=== PATIENT | male | born 1940 | race Caucasian/White ===

== ENCOUNTER 2016-08-14 05:51 | Observation (INO) ==
[2016-08-14 08:41] LABS: Basophils # (Auto) 0 K/mcL (0.0-0.3); Basophils % (Auto) 0.5 % (0.0-2.0); Eosinophils # (Auto) 0.2 K/mcL (0.0-0.7); Eosinophils % (Auto) 2.3 % (0.0-7.0); Granulocytes % (Auto) 75.7 % (38.0-78.0); Lymphocytes % (Auto) 11.5 % (15.5-49.0); Mean Cell Volume 95.3 fL (80.0-100.0); Mean Corpuscular HGB Conc 32.2 g/dL (31.0-36.0); Mean Corpuscular Hemoglobin 30.7 pg (26.0-34.0); Monocytes # (Auto) 0.9 K/mcL (0.1-0.9); Platelet Count 310 K/mcL (140-440); RBC 3.68 M/mcL (4.50-5.90)
--- NOTE | 2016-08-14 08:43 | XRay Report ---
HISTORY: Reason for Exam:fall/pain FINDINGS: Bilateral total hip prosthesis are normally positioned. No pelvic or hip fracture are present. There are vascular clips in the right groin. Severe atherosclerotic disease is present throughout the pelvis and both legs. There has been no significant change since 07/02/15. IMPRESSION: No fracture Interpreted and Authenticated by: Thanh Downey 08/14/16
[2016-08-14 08:50] LABS: ALT/SGPT 16 U/l (0-40); Albumin/Globulin Ratio 0.8 (1.0-2.3); Alkaline Phosphatase 109 U/L (39-117); Blood Urea Nitrogen 55 mg/dl (8-23)
[2016-08-14] MEDS ORDERED: ACETAMINOPHEN 325 MG TABLET PO ONE (11:04)
[2016-08-14 11:31] LABS: Appearance,Urine CLOUDY; Bacteria,Urine MOD /hpf (0); Bilirubin,Urine NEG (NEG); Color,Urine YELLOW; Glucose,Urine (UA) NEGATIVE (NEG); Leukocyte Esterase,Urine 500 /uL (NEG); Mucus,Urine FEW /hpf (0); Nitrate,Urine NEG (NEG); Protein,Urine 100 mg/dL (NEG); Urine Amorphous Crystals FEW /hpf (0); Urine Blood NEG mg/dL (<0.03); Urine RBC 2 /hpf (0-1); Urine Squamous Epithelial Cell 0 /hpf (0-4); Urine WBC > 182 /hpf (0-4); Urobilinogen,Urine NEG (NEG)
[2016-08-14] MEDS ORDERED: MAGNESIUM SULFATE 2 GM/50 ML BAG IV PRN (14:28)
[2016-08-14] MEDS ORDERED: ONDANSETRON 4 MG/2 ML VIAL IV PRN (14:28)
[2016-08-14] MEDS ORDERED: 0.9 % SODIUM CHLORIDE 1,000 ML IV SCH (14:28)
[2016-08-14] MEDS: cefTRIAXone 2 GM in DEXTROSE 5% IN WATER 50 ML IV SCH (15:19)
[2016-08-14] MEDS ORDERED: INSULIN ASPART 1 UNIT SUB-Q PRN (15:27)
[2016-08-14] MEDS: 0.9 % SODIUM CHLORIDE 10 ML SYRINGE IV SCH ×2 (16:19→21:45)
[2016-08-14] MEDS: BUMETANIDE 1 MG TABLET PO SCH (16:23)
[2016-08-14] MEDS ORDERED: MIDODRINE 5 MG TABLET PO PRN (17:00)
--- NOTE | 2016-08-14 18:57 | History and Physical Report ---
DATE OF ADMISSION: 08/14/2016 REASON FOR ADMISSION: Weakness and fall. HISTORY OF CHIEF COMPLAINT: The patient is a 75-year-old with endstage renal disease who was recently started on hemodialysis and carries a fairly complicated past medical history including diabetes mellitus type 2, obstructive sleep apnea, neuropathy and diastolic heart failure. The patient was recently admitted at [facility] for uremic encephalopathy, volume overload, anasarca and bradycardia. He was subsequently managed in ICU on mechanical ventilation and recovered after a long with hospitalization. The patient was sent to [facility] in [place] and he was recently discharged. He started hemodialysis at [facility]. He had his first round of hemodialysis at [facility] last week; however, on Monday the patient became extremely weak, unable to function and unable to walk. He actually slid off of his wheelchair and landed on his left hip sustaining injuries. He also missed his hemodialysis on Monday. He subsequently came to [facility] ER today for evaluation where initial workup was unremarkable including hip x-ray except for UTI, but because of significant weakness and high risk decompensation Hospitalist Service was consulted by house wrecker to admit the patient. It should be noted that Hospitalist Service was not given a verbal sign out by ER physician. At the time of examination, the patient is accompanied with his , Abby. The patient is alert, oriented and was able to answer most of the questions. He denies recent fever, chills, diarrhea. He does endorse to minimal dysuria along with lower abdominal pain, but denies nausea, vomiting, headache, photophobia, or skin rash. He does have bilateral lower extremity abrasions with SCDs used at [facility] causing local skin abrasions, but denies decubitus ulcers or glandular swelling. REVIEW OF SYSTEMS: Ten-point review of system was performed and negative except the ones discussed above. PAST MEDICAL HISTORY: 1. History of obstructive sleep apnea, refusing CPAP use. 2. ESRD on hemodialysis. 3. Neuropathy. 4. Diabetes mellitus type 2. 5. Morbid obesity. 6. Hypertension 7. Diastolic heart failure. 8. Bradycardia. 9. Chronic pain. 10. BPH. 11. History of gout. 12. Hyperlipidemia. CURRENT MEDICATIONS: 1. Lactobacillus 1 cap at hs. 2. Allopurinol 100 mg. 3. Atorvastatin 40 mg. 4. Bumetanide 3 mg b.i.d. 5. Calcitriol 0.25 mg every other day. 6. Coreg 12.5 mg b.i.d. 7. Advair inhaled. 8. Gabapentin 300 mg daily. 9. Aspart sliding scale. 10. Glargine 34 mg. 11. Levothyroxine 150 mcg. 12. Metolazone 2.5 liters. 13. Midodrine 2.5 mg t.i.d. p.r.n. for blood pressures less than 100. 14. Ranitidine 150 mg. 15. Trazodone 50 mg. 16. Coumadin 7.5 mg at bedtime. ALLERGIES: 1. ADHESIVE. 2. MORPHINE. 3. OXYCODONE. 4. HYDROCODONE. SOCIAL HISTORY: The patient was recently transferred from [facility] and was currently at home living in [place] along with his , Abby, who can be reached at [phone]. He has been seeing primary care physician, Kulwinder Rodríguez, at [place] and recently transitioned care to Dr. Hubbard, but has not had an appointment is. He also sees kirstie Guerrero M.D., marine erector. Remote history of smoking. No history of alcoholism. CODE STATUS: FULL CODE. FAMILY HISTORY: Significant for sister with atrial fibrillation. PHYSICAL EXAMINATION: GENERAL: The patient is morbidly obese. BMI 40. Height 5 feet 8 inches. VITAL SIGNS: Blood pressure 113/73, respiration rate 30, temperature 97.2, pulse 95, irregular sats 96% on room air. HEENT: Pupils symmetric. Oral cavity is dry. No ear or nose discharge. Head is normocephalic and atraumatic. NECK: No lymphadenopathy. HEART: S1, S2, irregular rhythm. ESM grade 1. CHEST: Diminished breath sounds at bases, right anterior chest. Subclavian dialysis catheter. ABDOMEN: Soft and nontender. LOWER EXTREMITIES: Significant for skin excoriation with edema and stasis changes, but no cyanosis or clubbing. Joints have no suspicious lesion except for restricted range of motion at the left hip joint along with local tenderness. SKIN: Otherwise, no suspicious lesions. PSYCHIATRIC: Alert and cooperative. No anxiety. NEURO: Nonfocal, moving all four extremities. LABS AND IMAGING: White count 8.8, hemoglobin 11.3, platelets 310, sodium 133, potassium 3.5, creatinine 4.2, and BUN 55. LFTs unremarkable. BNP 4710. UA 182, WBCs with moderate bacteria. ASSESSMENT AND PLAN: The patient is a 75-year-old admitted with weakness, fall, and complicated UTI. 1. Complicated UTI. Start antibiotic coverage with Rocephin and deescalate based on culture sensitivities. 2. Weakness secondary likely to above and recent hospitalization and deconditioning. Start aggressive PT and OT and transition to possible rehab center. 3. Weakness and fall. Rule out bradycardia leading to presyncope. Admit as telemetry. 4. ESRD. Continue hemodialysis as per nephrology. 5. Prior medical issues including history of diabetes mellitus type 2, continue basal prandial insulin; neuropathy, continue Gabapentin; obstructive sleep apnea, the patient refuses CPAP reactive airway disease. Continue Fluticasone inhaled; history of diastolic heart failure, continue Coreg, statin; history of gout, continue Allopurinol. PLAN FOR TODAY: 1. Admit as inpatient in light of severe deconditioning, complicated UTI, ESRD on hemodialysis and likely presyncope. 2. Antibiotic coverage. 3. Preexisting medical condition management as above. 4. Aggressive PT, OT and case management to arrange SNF transfer. AA:subha Job ID: [id number] Doc ID: [id number] Jose Rodríguez PA-C
[2016-08-14] MEDS ORDERED: DOCUSATE SODIUM 100 MG CAPSULE PO SCH (21:00)
[2016-08-14] MEDS: WARFARIN 2.5 MG TABLET PO SCH (21:21)
[2016-08-14] MEDS: ATORVASTATIN 20 MG TABLET PO SCH (21:21)
[2016-08-14] MEDS: LACTOBACILLUS 1 CAPSULE PO SCH (21:22)
[2016-08-14] MEDS: SENNOSIDES/DOCUSATE SODIUM 1 TAB TABLET PO SCH ×2 (21:22→21:45)
[2016-08-14] MEDS: FAMOTIDINE 20 MG TABLET PO SCH (21:22)
[2016-08-14] MEDS: HEPARIN 5,000 UNIT/ML VIAL SQ SCH (21:22)
[2016-08-14] MEDS: FLUTICASONE PROPIONATE INH SCH (21:43)
[2016-08-15] MEDS: 0.9 % SODIUM CHLORIDE 10 ML SYRINGE IV SCH ×3 (05:34→21:49)
[2016-08-15 07:56] LABS: Mean Cell Volume 95.5 fL (80.0-100.0); Mean Corpuscular HGB Conc 31.9 g/dL (31.0-36.0); Mean Corpuscular Hemoglobin 30.5 pg (26.0-34.0); Platelet Count 328 K/mcL (140-440); RBC 3.57 M/mcL (4.50-5.90); Red Cell Distribution Width 18.7 % (11.5-14.5)
[2016-08-15] MEDS: LEVOTHYROXINE 150 MCG TABLET PO SCH (08:03)
[2016-08-15 08:40] LABS: ALT/SGPT 13 U/l (0-40); Albumin 2.9 gm/dL (3.2-5.2); Albumin/Globulin Ratio 1.1 (1.0-2.3); Alkaline Phosphatase 98 U/L (39-117); Bilirubin,Direct < 0.2 mg/dL (0.0-0.3); Blood Urea Nitrogen 60 mg/dl (8-23); Gamma Glutamyl Transpeptidase 60 U/L (8-61); Magnesium 2.4 mg/dL (1.6-2.5); Phosphorous 4.5 mg/dL (2.7-4.5)
[2016-08-15] MEDS: MULTIVIT,THER IRON,CA,FA & MIN 1 TABLET PO SCH (08:55)
[2016-08-15] MEDS: INSULIN GLARGINE, HUMAN 1 UNIT/0.01 ML SQ SCH (08:55)
[2016-08-15] MEDS: GABAPENTIN 300 MG CAPSULE PO SCH (08:55)
[2016-08-15] MEDS: ALLOPURINOL 100 MG TABLET PO SCH (08:55)
[2016-08-15] MEDS: HEPARIN 5,000 UNIT/ML VIAL SQ SCH ×2 (08:55→21:14)
[2016-08-15] MEDS: cefTRIAXone 2 GM in DEXTROSE 5% IN WATER 50 ML IV SCH (08:56)
[2016-08-15] MEDS: BUMETANIDE 1 MG TABLET PO SCH ×2 (08:59→16:00)
[2016-08-15 09:54] LABS: Anisocytosis 1+ (NONE SEEN); Band Neutrophils % 1 % (0-10); Eosinophils % (Manual) 5 % (0-7); Lymphocytes % 15 % (15-49); Monocytes % (Manual) 9 % (1-9); Platelet Estimate NORMAL (NORMAL); RBC Morphology ABNORM (NORMAL); Segmented Neutrophils % 70 % (38-78)
--- NOTE | 2016-08-15 10:15 | Internal Med Progress Note ---
Medical - PN: Subj Patient information: Note initiated : 08/15/16 at 10:13 am Service Date, if different from initiated Date: [] Patient: David Pineda 75 y/o M admitted on 08/14/16 for Left hip pain. Chief Complaint: [] Interval history: 08/14/16- 75-year-old patient with ESRD on hemodialysis Recently had a complicated hospitalization stay at [facility] on mechanical ventilation. He was subsequently discharged to rehabilitation at [facility] and was discharged last week home. He is now admitted with weakness fall complicated UTI likely CHF exacerbation from volume overload. admitted as inpatient telemetry. Ruling out presyncope. Patient has recent episodes of bradycardia however was a poor operative candidate for pacemaker placement. patient will be monitored while be treated with antibiotics, aggressive physical therapy, continued hemodialysis and possible transfer to SNF 1/2-patient doing well. No overnight events. Hemodialysis today. No fever chills nausea vomiting or concerns per nursing staff. No significant telemetry events. - Constitutional Vitals: Vital Signs Temp Pulse Resp BP Pulse Ox 98.3 F 108 H 16 135/71 95 08/15/16 08:00 08/15/16 08:00 08/15/16 08:00 08/15/16 08:00 08/15/16 08:00 Period Temp Pulse Resp BP Sys/Bentley Pulse Ox Last 24 Hr 97.2 F-98.7 F 90-126 16-30 117-135/60-79 93-98 Intake and Output 08/14/16 08/15/16 08/15/16 21:59 05:59 13:59 Intake Total 320 / 320 100 / 100 50 / 50 Output Total 900 / 900 750 / 750 Balance -580 / -580 -650 / -650 50 / 50 Weight 266 lb 1.6 oz Intake & Output: Intake & Output 08/14/16 08/15/16 08/15/16 21:59 05:59 13:59 Intake Total 320 / 320 100 / 100 50 / 50 Output Total 900 / 900 750 / 750 Balance -580 / -580 -650 / -650 50 / 50 Weight 266 lb 1.6 oz Intake: IV 50 / 50 50 / 50 Dextrose 5% in Water 50 50 / 50 50 / 50 ml @ 100 mls/hr IV Q24H JUAN with Rocephin 2 gm Rx #:[id number] Oral 270 / 270 100 / 100 Output: Urine Catheter Amount 900 / 900 750 / 750 Other: Meal Dinner Percent of Meal Consumed 100% General appearance: cooperative, no acute distress Exam: alert oriented nonlabored breathing Foleys draining concentrated urine telemetry A. fib Medical - PN: Obj Da - Labs CBC & Chem 7: 08/15/16 05:00 08/15/16 05:00 Labs: Abnormal Lab Results 08/15/16 08/15/16 08/15/16 05:00 05:00 05:00 RBC 3.57 L Hgb 10.9 L Hct 34.1 L RDW 18.7 H MPV 7.0 L RBC Morphology Abnorm A Anisocytosis 1+ A PT 28.8 H INR 2.6 H Chloride 95 L BUN 60 H Creatinine 3.9 H Calcium 8.5 L Total Protein 5.6 L Albumin 2.9 L 08/14/16 17:02 RBC Hgb Hct RDW MPV RBC Morphology Anisocytosis PT 28.6 H INR 2.6 H Chloride BUN Creatinine Calcium Total Protein Albumin Meds: Medications Acetaminophen (Tylenol) 650 mg PO Q4-6HP PRN PRN Reason: PAIN/FEVER > 101 Allopurinol (Zyloprim) 200 mg PO QDAY [facility] Last Admin: 08/15/16 08:55 Dose: 200 mg Atorvastatin Calcium (Lipitor) 30 mg PO HS [facility] Last Admin: 08/14/16 21:21 Dose: 30 mg Bumetanide (Bumex) 3 mg PO BIDD [facility] Last Admin: 08/15/16 08:59 Dose: 3 mg Calcitriol (Rocaltrol) 0.25 mcg PO Q48@0900 [facility] Diagnostic Test (Pha) (Accu-Chek) 1 each FS ACHS [facility] Last Admin: 08/15/16 08:03 Dose: 1 each Famotidine (Pepcid) 20 mg PO HS [facility] Last Admin: 08/14/16 21:22 Dose: 20 mg Gabapentin (Neurontin) 300 mg PO QDAY [facility] Last Admin: 08/15/16 08:55 Dose: 300 mg Heparin Sodium (Porcine) (Heparin) 5,000 unit SQ Q12 [facility] Last Admin: 08/15/16 08:55 Dose: 5,000 unit Magnesium Sulfate (Magnesium Sulfate) 2 gm in 50 mls @ 50 mls/hr IV UD PRN PRN Reason: MG = or < 1.7 Ceftriaxone Sodium 2 gm/ (Dextrose) 50 mls @ 100 mls/hr IV Q24H [facility] Last Infusion: 08/15/16 09:49 Dose: Infused Insulin Glargine (Lantus) 34 unit SQ DAILY [facility] Last Admin: 08/15/16 08:55 Dose: 34 unit Iron Carb/Multivit/Buyer Planner/Folic Acid (Multivitamin W/Minerals) 1 tab PO DAILY [facility] Last Admin: 08/15/16 08:55 Dose: 1 tab Lactobacillus Rhamnosus (Culturelle) 1 cap PO [facility] Last Admin: 08/14/16 21:22 Dose: 1 cap Levothyroxine Sodium (Synthroid) 150 mcg PO QAMAC [facility] Last Admin: 08/15/16 08:03 Dose: 150 mcg Metolazone (Zaroxolyn) 2.5 mg PO Q48@0730 [facility] Midodrine (Midodrine Hcl) 2.5 mg PO TIDP PRN PRN Reason: HYPOTENSION Non-Formulary Medication (Insulin Aspart [Novolog Flexpen]) 1 unit SUB-Q ONCE PRN PRN Reason: Blood Sugar - High Ondansetron HCl (Zofran) 4 mg IV Q4-6HP PRN PRN Reason: Nausea And Vomiting Fluticasone Propionate [Flovent Diskus] Inhaler 2 dose INH [facility] Last Admin: 08/14/16 21:43 Dose: Not Given Senna/Docusate Sodium (Senna Plus Tablet) 1 tab PO [facility] Last Admin: 08/14/16 21:45 Dose: Not Given Sodium Chloride (Saline Flush) 10 ml IV Q8 [facility] Last Admin: 08/15/16 05:34 Dose: 10 ml Warfarin Sodium (Coumadin) 3.75 mg PO [facility] Last Admin: 08/14/16 21:21 Dose: 3.75 mg Medical - PN: A/P - Time Spent With Patient Total time spent is greater than 50% in coordination of care (as documented) at patient's floor/unit and/or counseling patient: 25 - 35 minutes (1) Complicated UTI (urinary tract infection) Status: Acute Assessment and plan: * Complicated UTI-on antibiotic coverage. Await cultures * Presyncope-No telemetry events. History of bradycardia. Continue monitoring. Possible orthostatic hypotension * Falls with weakness-aggressive physical therapy and SNF transfer * ESRD on hemodialysis managed by nephrology * Hypothyroidism on thyroxine * dM type II on basal prandial insulin * history of orthostatic hypotension on midodrine * Atrial fibrillation currently rate controlled * anticoagulation for CVA prophylaxis on Coumadin. INR therapeutic at 2.6 * hyperlipidemia on statin * History of gout on allopurinol * neuropathy on gabapentin plan * Continue antibiotic coverage * Presyncope evaluation/treatment * Hemodialysis per nephrology * pre-existing medical condition management as above * Case management to arrange SNF transfer Current Visit: Yes Medical - PN: Qual - Stroke Symptom Onset Unknown: No - VTE Deep Vein Thrombosis/Pulmonary Embolism Present on Admission: No
[2016-08-15] MEDS: ACETAMINOPHEN 325 MG TABLET PO PRN ×2 (11:30→21:16)
[2016-08-15] MEDS: INSULIN LISPRO 1 UNIT/0.01 ML UNIT SQ SCH ×3 (11:35→21:19)
--- NOTE | 2016-08-15 14:38 | XRay Report ---
HISTORY: Reason for Exam: CHF FINDINGS: The heart size is within normal limits and has diminished in size since 07/11/16. There is respiration motion artifact along the diaphragms. There may be small bilateral subpulmonic pleural effusions. The pulmonary vessels do not appear engorged. There is no consolidating infiltrate. Dual lumen catheter is placed through the right internal jugular vein into the superior vena cava. IMPRESSION: Resolved cardiomegaly and no evidence of pulmonary vasculature congestion. Possible small bilateral pleural effusions Interpreted and Authenticated by: Thanh Downey 08/15/16
--- NOTE | 2016-08-15 15:19 | Nephrology Consult Note ---
History of Present Illness - Reason for Consult Patient information: Note initiated : 08/15/16 at 3:13 pm Service Date, if different from initiated Date: [] Patient: David Pineda 75 y/o M admitted on 08/14/16 for Left hip pain. Chief Complaint: [] Consult date: 08/14/16 end stage renal disease Requesting physician: Jose German - Chief Complaint weakness, fall - History of Present Illness Mr Pineda is a 75 y/o pleasant white male with PMH of HTN, DM type 2, Afib, ESRD on HD and multiple other medical co morbidities who is admitted with UTI, PRE SYNCOPE Patient has a history of recent hospitalisation for acute on chronic renal failure, hyperkalemia, pul edema for which he has had prolonged hospitalisation at [facility], he was initiated on dialysis there, he also needed pacemaker placement but had issues during surgery and this was not done, he was on ventilator there. Patient was discharged to SNF in [place] and was doing well and hence was discharged last week. He however has not been feeling well at home, he has had increasing weakness and inability to stand, walk. He had a fall at home after he was trying to transfer and he cannot remember what exactly happened, he was brought to ED and was found to have weakness/ deconditioning, on further evaluation he was found to have UTI and also CHF( with elevated pro BNP and small b/l pleural effusionon CXR) and hence he is been admitted for further management Patient did have some dysuria and cloudy urine since he came back to [facility] He did not have fever, chills no nausea, vomiting no SOB, CP no does c/o severe hip pain on and off, hip xray is negative Review of Systems All systems PM: reviewed and no additional remarkable complaints except as stated (in hpi) Past History Past medical history: DM type 2 HTN Afib CHF ANGELICA, ? obesity hypoventilation syndrome ESRD on HD morbid obesity hypothyroidism anemia of CKD renal osteodystrophy Past surgical history: s/p b/l hip replacement s/p TCC placement Past family history: not pertinent Past social history: lives with his in [place] currently no addictions Medications and Allergies Home Medications Medication Instructions Recorded Confirmed Type Lactobacillus acidophilus capsule 1 cap PO HS 03/11/15 08/14/16 History levothyroxine 150 mcg tablet 150 mcg PO QDAY tab 03/11/15 08/14/16 History cyanocobalamin (vit B-12) 1,000 1,000 mcg PO QDAY tab 03/16/15 08/14/16 History mcg tablet warfarin 5 mg tablet 3.75 mg PO HS tab 04/06/15 08/14/16 History fluticasone 50 mcg/actuation 2 inh INHALATION HS each 10/06/15 08/14/16 History blister powder for inhalation insulin aspart 100 unit/mL 1 unit SUB-Q ONCE PRN 12/17/15 08/14/16 History subcutaneous pen insulin glargine 100 unit/mL (3 34 unit SUB-Q QDAY ml 12/17/15 08/14/16 History mL) subcutaneous pen metolazone 2.5 mg tablet 2.5 mg PO QOD 04/25/16 08/14/16 History ranitidine 150 mg tablet 150 mg PO QHS 04/25/16 08/14/16 History coenzyme Q10 100 mg capsule 100 mg PO QDAY 05/25/16 08/14/16 History RX: Atorvastatin [Lipitor] 30 mg PO QDAY 08/14/16 08/14/16 History Allergies Allergy/AdvReac Type Severity Reaction Status Date / Time adhesive Allergy Unknown Unknown Verified 08/14/16 05:57 hydrocodone AdvReac Mild Dizziness Verified 08/14/16 05:57 morphine [MORPHINE] AdvReac Mild Nausea/Vomi Verified 08/14/16 05:57 ting Oxycodone AdvReac Mild Vomiting Verified 08/14/16 05:57 Exam - Vital Signs Vital signs: Temp Pulse Resp BP Pulse Ox 98.1 F 108 H 20 127/54 93 08/15/16 12:00 08/15/16 08:00 08/15/16 12:00 08/15/16 12:00 08/15/16 12:00 - General Appearance General appearance: appears started age, obese EENT: mucous membranes moist Neck: JVD Cardiology: no rub, no edema, irregular rhythm Gastrointestinal: no tenderness, no guarding Neurologic: alert and oriented x3 (myoclonic tremors +) Musculoskeletal: no cyanosis, no clubbing Psychiatric: mood/affect appropriate Results - Lab Results 08/15/16 05:00 08/15/16 05:00 Most recent lab results Calcium 8.5 mg/dl (8.6-10.4) L 08/15/16 05:00 Phosphorus 4.5 mg/dL (2.7-4.5) 08/15/16 05:00 Magnesium 2.4 mg/dL (1.6-2.5) 08/15/16 05:00 Assessment and Plan (1) ESRD (end stage renal disease) on dialysis Patient on dialysis now over a month no urgent need for the same good urinary output and stable serum electrolytes he will have HD done tomorrow will continue with diuretics as pro bnp still elevated and CXR still shows small b/l pleural effusion please dose meds to dialysis Complicated UTI: on antibiotics, await culture Pre syncope with fall at home deconditioning, will need SNF placement Anemia of CKD: Hb at goal for ESRD Discussed code status, patient and want him to be DNR, but they would like aggressive measures including dialysis overall poor prognosis appreciate hospitalist help in managing this patient Status: Acute
[2016-08-15] MEDS: LACTOBACILLUS 1 CAPSULE PO SCH (21:15)
[2016-08-15] MEDS: ATORVASTATIN 20 MG TABLET PO SCH (21:15)
[2016-08-15] MEDS: WARFARIN 2.5 MG TABLET PO SCH (21:15)
[2016-08-15] MEDS: SENNOSIDES/DOCUSATE SODIUM 1 TAB TABLET PO SCH (21:16)
[2016-08-15] MEDS: FAMOTIDINE 20 MG TABLET PO SCH (21:16)
[2016-08-15] MEDS: FLUTICASONE PROPIONATE INH SCH (21:49)
[2016-08-16] MEDS: ACETAMINOPHEN 325 MG TABLET PO PRN (04:07)
[2016-08-16] MEDS: 0.9 % SODIUM CHLORIDE 10 ML SYRINGE IV SCH ×3 (05:18→21:15)
[2016-08-16 05:33] LABS: Mean Cell Volume 95.7 fL (80.0-100.0); Mean Corpuscular HGB Conc 32.2 g/dL (31.0-36.0); Mean Corpuscular Hemoglobin 30.8 pg (26.0-34.0); Platelet Count 343 K/mcL (140-440); RBC 3.84 M/mcL (4.50-5.90); Red Cell Distribution Width 18.3 % (11.5-14.5)
[2016-08-16 06:16] LABS: Anisocytosis 1+ (NONE SEEN); Band Neutrophils % 1 % (0-10); Eosinophils % (Manual) 3 % (0-7); Lymphocytes % 20 % (15-49); Monocytes % (Manual) 11 % (1-9); Platelet Estimate NORMAL (NORMAL); RBC Morphology ABNORM (NORMAL); Rouleaux PRESENT (NONE SEEN); Segmented Neutrophils % 63 % (38-78)
[2016-08-16 06:34] LABS: ALT/SGPT 12 U/l (0-40); Albumin 2.8 gm/dL (3.2-5.2); Albumin/Globulin Ratio 0.8 (1.0-2.3); Alkaline Phosphatase 99 U/L (39-117); Bilirubin,Direct < 0.2 mg/dL (0.0-0.3); Blood Urea Nitrogen 65 mg/dl (8-23); Gamma Glutamyl Transpeptidase 63 U/L (8-61); Magnesium 2.1 mg/dL (1.6-2.5); Uric Acid 7.5 mg/dL (2.5-8.0)
[2016-08-16] MEDS ORDERED: METOLAZONE 2.5 MG TABLET PO SCH (07:30)
[2016-08-16] MEDS: BUMETANIDE 1 MG TABLET PO SCH ×2 (08:34→18:02)
[2016-08-16] MEDS: GABAPENTIN 300 MG CAPSULE PO SCH (08:34)
[2016-08-16] MEDS: ALLOPURINOL 100 MG TABLET PO SCH (08:35)
[2016-08-16] MEDS: MULTIVIT,THER IRON,CA,FA & MIN 1 TABLET PO SCH (08:35)
[2016-08-16] MEDS: INSULIN GLARGINE, HUMAN 1 UNIT/0.01 ML SQ SCH (08:36)
[2016-08-16] MEDS: HEPARIN 5,000 UNIT/ML VIAL SQ SCH ×2 (08:36→21:14)
[2016-08-16] MEDS: INSULIN LISPRO 1 UNIT/0.01 ML UNIT SQ SCH ×4 (08:37→21:35)
[2016-08-16] MEDS: LEVOTHYROXINE 150 MCG TABLET PO SCH (08:41)
[2016-08-16] MEDS: cefTRIAXone 2 GM in DEXTROSE 5% IN WATER 50 ML IV SCH (08:42)
[2016-08-16] MEDS ORDERED: CALCITRIOL 0.25 MCG CAPSULE PO SCH (09:00)
--- NOTE | 2016-08-16 13:34 | Internal Med Progress Note ---
Medical - PN: Subj Patient information: Note initiated : 08/16/16 at 1:34 pm Service Date, if different from initiated Date: [] Patient: David Pineda 75 y/o M admitted on 08/14/16 for Left Hip Pain/Weakness , Fall, Complicated UTI. Chief Complaint: [] Interval history: 08/14/16- 75-year-old patient with ESRD on hemodialysis Recently had a complicated hospitalization stay at [facility] on mechanical ventilation. He was subsequently discharged to rehabilitation at [facility] and was discharged last week home. He is now admitted with weakness fall complicated UTI likely CHF exacerbation from volume overload. admitted as inpatient telemetry. Ruling out presyncope. Patient has recent episodes of bradycardia however was a poor operative candidate for pacemaker placement. patient will be monitored while be treated with antibiotics, aggressive physical therapy, continued hemodialysis and possible transfer to SNF 1/2-patient doing well. No overnight events. Hemodialysis today. No fever chills nausea vomiting or concerns per nursing staff. No significant telemetry events. august 16, 2016: today, the patient says he still has some left hip discomfort andis adamant that that is the only reason that he cannot stand up and help with his transfers. However he also believes that he could transfer himself, without a Karuna lift, and according to the nurses, he clearly cannot. He denies feeling generally weak, and says his main problem is the hip pain. his urinary tract infection was reported as a pansensitive Klebsiella. He did undergo dialysis today. - Constitutional Vitals: Vital Signs Temp Pulse Resp BP Pulse Ox 97.5 F L 82 20 126/86 94 08/16/16 12:00 08/16/16 13:27 08/16/16 12:00 08/16/16 13:27 08/16/16 12:00 Period Temp Pulse Resp BP Sys/Bnetley Pulse Ox Last 24 Hr 97.3 F-98.7 F 70-100 16-20 103-133/61-88 94-96 Intake and Output 08/15/16 08/16/16 08/16/16 21:59 05:59 13:59 Intake Total 350 / 350 360 / 360 290 / 290 Output Total 950 / 950 775 / 775 1904 / 1904 Balance -600 / -600 -415 / -415 -1614 / -1614 Weight 264 lb Intake & Output: Intake & Output 08/15/16 08/16/16 08/16/16 21:59 05:59 13:59 Intake Total 350 / 350 360 / 360 290 / 290 Output Total 950 / 950 775 / 775 1903 Balance -600 / -600 -415 / -415 -1614 / -1614 Weight 264 lb Intake: IV 50 / 50 Dextrose 5% in Water 50 50 / 50 ml @ 100 mls/hr IV Q24H JUAN with Rocephin 2 gm Rx #:[id number] Oral 350 / 350 360 / 360 240 / 240 Output: Urine Catheter Amount 950 / 950 775 / 775 Hemodialysis UF 1903 Other: Meal Breakfast Percent of Meal Consumed 100% Feeding Ability Assist with Tray Set Up # Bowel Movements 0 Exam: on exam, he is an overweight, elderly white male in no acute distress. Cardiac exam shows irregularly irregular rhythm. lungsare decreased throughout with scattered crackles. Abdomen: Is soft and nontender. Extremities: Show trace peripheral edema. he is able to flex at the left hip without significant pain. Neurologic: The patient is too weak to really sit up without significant assistance.. Medical - PN: Obj Da - Labs CBC & Chem 7: 08/16/16 03:50 08/16/16 03:50 Labs: Abnormal Lab Results 08/16/16 08/16/16 08/16/16 03:50 03:50 03:50 RBC 3.84 L Hgb 11.8 L Hct 36.8 L RDW 18.3 H MPV 7.0 L Monocytes % (Manual) 11 H RBC Morphology Abnorm A Anisocytosis 1+ A Rouleaux Present A PT 25.9 H INR 2.3 H Chloride 91 L Anion Gap 17.0 H BUN 65 H Creatinine 4.0 H Calcium Phosphorus 5.0 H GGT 63 H Lactate Dehydrogenase 257 H Total Protein Albumin 2.8 L Albumin/Globulin Ratio 0.8 L 08/15/16 08/15/16 08/15/16 05:00 05:00 05:00 RBC 3.57 L Hgb 10.9 L Hct 34.1 L RDW 18.7 H MPV 7.0 L Monocytes % (Manual) RBC Morphology Abnorm A Anisocytosis 1+ A Rouleaux PT 28.8 H INR 2.6 H Chloride 95 L Anion Gap BUN 60 H Creatinine 3.9 H Calcium 8.5 L Phosphorus GGT Lactate Dehydrogenase Total Protein 5.6 L Albumin 2.9 L Albumin/Globulin Ratio 08/14/16 17:02 RBC Hgb Hct RDW MPV Monocytes % (Manual) RBC Morphology Anisocytosis Rouleaux PT 28.6 H INR 2.6 H Chloride Anion Gap BUN Creatinine Calcium Phosphorus GGT Lactate Dehydrogenase Total Protein Albumin Albumin/Globulin Ratio urinalysis and culture: Klebsiella pneumonia, pansensitive. Meds: Medications Acetaminophen (Tylenol) 650 mg PO Q4-6HP PRN PRN Reason: PAIN/FEVER > 101 Last Admin: 08/16/16 04:07 Dose: 650 mg Allopurinol (Zyloprim) 200 mg PO QDAY [facility] Last Admin: 08/16/16 08:35 Dose: 200 mg Atorvastatin Calcium (Lipitor) 30 mg PO HS [facility] Last Admin: 08/15/16 21:15 Dose: 30 mg Bumetanide (Bumex) 3 mg PO BIDD [facility] Last Admin: 08/16/16 08:34 Dose: 3 mg Calcitriol (Rocaltrol) 0.25 mcg PO Q48@0900 [facility] Last Admin: 08/16/16 08:35 Dose: 0.25 mcg Diagnostic Test (Pha) (Accu-Chek) 1 each FS [facility] Last Admin: 08/16/16 12:01 Dose: 1 each Famotidine (Pepcid) 20 mg PO HS [facility] Last Admin: 08/15/16 21:16 Dose: 20 mg Gabapentin (Neurontin) 300 mg PO QDAY [facility] Last Admin: 08/16/16 08:34 Dose: 300 mg Heparin Sodium (Porcine) (Heparin) 5,000 unit SQ Q12 [facility] Last Admin: 08/16/16 08:36 Dose: 5,000 unit Magnesium Sulfate (Magnesium Sulfate) 2 gm in 50 mls @ 50 mls/hr IV UD PRN PRN Reason: MG = or < 1.7 Ceftriaxone Sodium 2 gm/ (Dextrose) 50 mls @ 100 mls/hr IV Q24H [facility] Last Infusion: 08/16/16 09:38 Dose: Infused Insulin Glargine (Lantus) 34 unit SQ DAILY [facility] Last Admin: 08/16/16 08:36 Dose: 34 unit Insulin Human Lispro (Humalog) 0 unit SQ ACHS [facility] PRN Reason: Protocol Last Admin: 08/16/16 12:03 Dose: Not Given Iron Carb/Multivit/Hoop Coiling Machine Operator/Folic Acid (Multivitamin W/Minerals) 1 tab PO DAILY [facility] Last Admin: 08/16/16 08:35 Dose: 1 tab Lactobacillus Rhamnosus (Culturelle) 1 cap PO [facility] Last Admin: 08/15/16 21:15 Dose: 1 cap Levothyroxine Sodium (Synthroid) 150 mcg PO QAMAC [facility] Last Admin: 08/16/16 08:41 Dose: 150 mcg Metolazone (Zaroxolyn) 2.5 mg PO Q48@0730 [facility] Last Admin: 08/16/16 08:41 Dose: 2.5 mg Midodrine (Midodrine Hcl) 2.5 mg PO TIDP PRN PRN Reason: HYPOTENSION Ondansetron HCl (Zofran) 4 mg IV Q4-6HP PRN PRN Reason: Nausea And Vomiting Fluticasone Propionate [Flovent Diskus] Inhaler 2 dose INH [facility] Last Admin: 08/15/16 21:49 Dose: Not Given Senna/Docusate Sodium (Senna Plus Tablet) 1 tab PO [facility] Last Admin: 08/15/16 21:16 Dose: 1 tab Sodium Chloride (Saline Flush) 10 ml IV Q8 [facility] Last Admin: 08/16/16 05:18 Dose: 10 ml Warfarin Sodium (Coumadin) 3.75 mg PO [facility] Last Admin: 08/15/16 21:15 Dose: 3.75 mg Medical - PN: A/P - Time Spent With Patient Total time spent is greater than 50% in coordination of care (as documented) at patient's floor/unit and/or counseling patient: - Narrative A/P Narrative: #1. Failure to thrive -is a little unclear if this is related to his recent prolonged hospitalization , or to leaving the rehabilitation facility early, or to recurrent UTI. He does seem to be improving a bit today but still probably need significant physical therapy prior to returning home without high risk of fall. -Because of his left hip pain, I did contact Dr. Moreno of orthopedics. He looked at his x-rays,and feels it is highly unlikely that the patient has anything reversible causing his pain. The patient is certainly not a candidate for major orthopedic surgery. There is no evidence of acute hip infection. He suggested we continue with physical therapy, and pain medication if needed.. #2. Complicated UTI. -He is clinically improving on IV antibiotics. #3. End-stage renal disease. Status post dialysis, managed by Dr. Guerrero. #4. Hypothyroidism. Continue levothyroxine. #5. Diabetes type 2. Continue insulin. #6. History of orthostatic hypotension, managed with midodrine #7. History of atrial fibrillation, with controlled rate. He is on anticoagulation for stroke prophylaxis, and INR has been therapeutic. #8.History of hyperlipidemia, gout, neuropathy. Continue usual medications. #9. CODE STATUS: DNR. #10. DVT prophylaxis: Coumadin. approximately 35 minutes was spent today, reviewing the patient's chart and test results, interviewing and examining him, reviewing his case with orthopedics, and writing orders. Medical - PN: Qual - Stroke Symptom Onset Unknown: No - VTE Deep Vein Thrombosis/Pulmonary Embolism Present on Admission: No
[2016-08-16] MEDS ORDERED: ACETAMINOPHEN 325 MG TABLET PO PRN (16:32)
[2016-08-16] MEDS ORDERED: MIDODRINE 5 MG TABLET PO PRN (16:32)
[2016-08-16] MEDS ORDERED: ONDANSETRON 4 MG/2 ML VIAL IV PRN (16:32)
[2016-08-16] MEDS ORDERED: MAGNESIUM SULFATE 2 GM/50 ML BAG IV PRN (16:32)
--- NOTE | 2016-08-16 16:48 | Nephrology Progress Note ---
Subjective Patient information: Note initiated : 08/16/16 at 4:44 pm Service Date, if different from initiated Date: [] Patient: David Pineda 75 y/o M admitted on 08/14/16 for Left Hip Pain/Weakness , Fall, Complicated UTI. Chief Complaint: [] Principal diagnosis: UTI, Fall Interval history: Patient has had no overnight events feels better hip pain much improved still has issues with transfer and sit to stand denies SOB, CP, dizziness, no edema Objective - Vital Signs Vital signs: Vital Signs Temp Pulse Pulse Resp BP BP BP 08/16/16 16:01 97.5 F L 81 116/72 08/16/16 15:56 97.6 F 20 111/66 08/16/16 15:44 81 114/70 08/16/16 14:53 102 H 107/63 08/16/16 14:23 60 122/72 08/16/16 13:54 68 112/71 08/16/16 13:27 82 126/86 08/16/16 12:56 70 124/82 08/16/16 12:25 90 103/69 08/16/16 12:00 97.3 F L 94 H 20 120/64 120/64 08/16/16 08:00 98.3 F 100 H 16 131/71 08/16/16 04:00 98.7 F 16 131/71 08/15/16 23:44 98.4 F 18 110/61 08/15/16 19:53 98.6 F 100 H 18 111/65 Pulse Ox 08/16/16 16:01 08/16/16 15:56 96 08/16/16 15:44 08/16/16 14:53 08/16/16 14:23 08/16/16 13:54 08/16/16 13:27 08/16/16 12:56 08/16/16 12:25 08/16/16 12:00 94 08/16/16 08:00 08/16/16 04:00 95 08/15/16 23:44 94 08/15/16 19:53 95 Intake and Output 08/16/16 08/16/16 08/16/16 05:59 13:59 21:59 Intake Total 360 / 360 290 / 290 240 / 240 Output Total 775 / 775 3084 / 3084 8292 / 8292 Balance -415 / -415 -2794 / -2794 -8052 / -8052 Intake: IV 50 / 50 Dextrose 5% in Water 50 50 / 50 ml @ 100 mls/hr IV Q24H JUAN with Rocephin 2 gm Rx #:[id number] Oral 360 / 360 240 / 240 240 / 240 Output: Urine Catheter Amount 775 / 775 350 / 350 Hemodialysis UF 3084 / 3084 7942 / 7942 Other: Meal Breakfast Percent of Meal Consumed 100% Feeding Ability Assist with Tray Set Up Weight 264 lb Patient Weight 08/17/16 05:59 Weight 264 lb Intake & Output: Intake & Output 08/16/16 08/16/16 08/16/16 05:59 13:59 21:59 Intake Total 360 / 360 290 / 290 240 / 240 Output Total 775 / 775 3084 / 3084 8292 / 8292 Balance -415 / -415 -2794 / -2794 -8052 / -8052 Weight 264 lb Intake: IV 50 / 50 Dextrose 5% in Water 50 50 / 50 ml @ 100 mls/hr IV Q24H JUAN with Rocephin 2 gm Rx #:[id number] Oral 360 / 360 240 / 240 240 / 240 Output: Urine Catheter Amount 775 / 775 350 / 350 Hemodialysis UF 3084 / 3084 7942 / 7942 Other: Meal Breakfast Percent of Meal Consumed 100% Feeding Ability Assist with Tray Set Up - General Appearance General appearance: appears started age, obese EENT: mucous membranes moist Neck: no JVD Respiratory: clear Cardiology: no rub, no edema, irregular rhythm Gastrointestinal: no tenderness, no guarding Integumentary: warm and dry Neurologic: alert and oriented x3 Psychiatric: mood/affect appropriate - Lab 08/16/16 03:50 08/16/16 03:50 Most recent lab results Calcium 8.6 mg/dl (8.6-10.4) 08/16/16 03:50 Phosphorus 5.0 mg/dL (2.7-4.5) H 08/16/16 03:50 Magnesium 2.1 mg/dL (1.6-2.5) 08/16/16 03:50 Assessment and Plan (1) ESRD (end stage renal disease) on dialysis HD today for 4 hrs, using QB 400ml/min, QD 700ml/min, 3K/2.5ca dialysate, UF of 1-2L as tolerated next HD on dose meds to dialysis UTI: pansensitive klebsiella on antibiotics deconditioning awaiting SNF placement Appreciate hospitalist help in managing this patient Status: Acute
[2016-08-16] MEDS ORDERED: FAMOTIDINE 20 MG TABLET PO SCH (21:00)
[2016-08-16] MEDS ORDERED: WARFARIN 2.5 MG TABLET PO SCH (21:00)
[2016-08-16] MEDS ORDERED: LACTOBACILLUS 1 CAPSULE PO SCH (21:00)
[2016-08-16] MEDS ORDERED: ATORVASTATIN 20 MG TABLET PO SCH (21:00)
[2016-08-16] MEDS ORDERED: FLUTICASONE PROPIONATE INH SCH (21:00)
[2016-08-16] MEDS: SENNOSIDES/DOCUSATE SODIUM 1 TAB TABLET PO SCH (21:16)
[2016-08-17 05:43] LABS: ALT/SGPT 16 U/l (0-40); Albumin 2.9 gm/dL (3.2-5.2); Albumin/Globulin Ratio 0.7 (1.0-2.3); Alkaline Phosphatase 104 U/L (39-117); Bilirubin,Direct < 0.2 mg/dL (0.0-0.3); Blood Urea Nitrogen 38 mg/dl (8-23); Gamma Glutamyl Transpeptidase 69 U/L (8-61); Magnesium 1.9 mg/dL (1.6-2.5); Phosphorous 3.4 mg/dL (2.7-4.5); Uric Acid 4.1 mg/dL (2.5-8.0)
[2016-08-17 05:55] LABS: Mean Corpuscular HGB Conc 31.7 g/dL (31.0-36.0); Mean Corpuscular Hemoglobin 30.4 pg (26.0-34.0); Platelet Count 352 K/mcL (140-440); RBC 3.97 M/mcL (4.50-5.90); Red Cell Distribution Width 17.7 % (11.5-14.5)
[2016-08-17] MEDS: SENNOSIDES/DOCUSATE SODIUM 1 TAB TABLET PO SCH (06:15)
[2016-08-17] MEDS: 0.9 % SODIUM CHLORIDE 10 ML SYRINGE IV SCH (06:16)
[2016-08-17 07:02] LABS: Anisocytosis 1+ (NONE SEEN); Band Neutrophils % 3 % (0-10); Eosinophils % (Manual) 4 % (0-7); Lymphocytes % 15 % (15-49); Monocytes % (Manual) 14 % (1-9); Platelet Estimate NORMAL (NORMAL); RBC Morphology ABNORM (NORMAL); Segmented Neutrophils % 64 % (38-78)
[2016-08-17] MEDS: INSULIN LISPRO 1 UNIT/0.01 ML UNIT SQ SCH (07:22)
[2016-08-17] MEDS ORDERED: LEVOTHYROXINE 150 MCG TABLET PO SCH (07:30)
[2016-08-17] MEDS ORDERED: BUMETANIDE 1 MG TABLET PO SCH (08:00)
[2016-08-17] MEDS ORDERED: GABAPENTIN 300 MG CAPSULE PO SCH (09:00)
[2016-08-17] MEDS ORDERED: INSULIN GLARGINE, HUMAN 1 UNIT/0.01 ML SQ SCH (09:00)
[2016-08-17] MEDS ORDERED: cefTRIAXone 2 GM in DEXTROSE 5% IN WATER 50 ML IV SCH (09:00)
[2016-08-17] MEDS ORDERED: ALLOPURINOL 100 MG TABLET PO SCH (09:00)
[2016-08-17] MEDS ORDERED: MULTIVIT,THER IRON,CA,FA & MIN 1 TABLET PO SCH (09:00)
--- NOTE | 2016-08-17 09:26 | Discharge Summary ---
Medical - DS: Prov Patient information: Note initiated : 08/17/16 at 9:24 am Service Date, if different from initiated Date: [] Patient: David Pineda 75 y/o M admitted on 08/14/16 for Left Hip Pain/Weakness , Fall, Complicated UTI. Chief Complaint: [] Date of admission: 08/14/16 12:42 Discharge date: 08/17/16 Primary care physician: [Dr. Ani Hubbard phone [phone]] Admitting clinician: Jose German Attending physician on discharge: Andressa Azevedo Medical - DS: Meds - Discharge Medications Prescriptions: cefTRIAXone [Rocephin] 2 gm IV DAILY 3 Days Active and Home Medications: Home Medications Atorvastatin [Lipitor] 30 mg PO QDAY 08/14/16 [History Confirmed 08/14/16 Last Taken 08/13/16 20:00] Active Medications Acetaminophen (Tylenol) 650 mg PO Q4-6HP PRN PRN Reason: PAIN/FEVER > 101 Allopurinol (Zyloprim) 200 mg PO QDAY [facility] Atorvastatin Calcium (Lipitor) 30 mg PO HS [facility] Last Admin: 08/16/16 21:11 Dose: 30 mg Bumetanide (Bumex) 3 mg PO BIDD [facility] Calcitriol (Rocaltrol) 0.25 mcg PO Q48@0900 [facility] Diagnostic Test (Pha) (Accu-Chek) 1 each FS ACHS [facility] Last Admin: 08/17/16 07:22 Dose: 1 each Famotidine (Pepcid) 20 mg PO HS [facility] Last Admin: 08/16/16 21:12 Dose: 20 mg Gabapentin (Neurontin) 300 mg PO QDAY [facility] Heparin Sodium (Porcine) (Heparin) 5,000 unit SQ Q12 [facility] Last Admin: 08/16/16 21:14 Dose: 5,000 unit Magnesium Sulfate (Magnesium Sulfate) 2 gm in 50 mls @ 25 mls/hr IV UD PRN PRN Reason: MG = or < 1.7 Ceftriaxone Sodium 2 gm/ (Dextrose) 50 mls @ 100 mls/hr IV DAILY [facility] Insulin Glargine (Lantus) 34 unit SQ DAILY [facility] Insulin Human Lispro (Humalog) 0 unit SQ ACHS [facility] PRN Reason: Protocol Last Admin: 08/17/16 07:22 Dose: Not Given Iron Carb/Multivit/Oktibbeha/Folic Acid (Multivitamin W/Minerals) 1 tab PO DAILY [facility] Lactobacillus Rhamnosus (Culturelle) 1 cap PO [facility] Last Admin: 08/16/16 21:13 Dose: 1 cap Levothyroxine Sodium (Synthroid) 150 mcg PO QAMAC [facility] Last Admin: 08/17/16 07:22 Dose: 150 mcg Metolazone (Zaroxolyn) 2.5 mg PO Q48@0730 [facility] Midodrine (Midodrine Hcl) 2.5 mg PO TIDP PRN PRN Reason: HYPOTENSION Ondansetron HCl (Zofran) 4 mg IV Q4-6HP PRN PRN Reason: Nausea And Vomiting Fluticasone Propionate [Flovent Diskus] Inhaler 2 dose INH [facility] Last Admin: 08/16/16 21:16 Dose: Not Given Senna/Docusate Sodium (Senna Plus Tablet) 1 tab PO [facility] Last Admin: 08/17/16 06:15 Dose: 1 tab Sodium Chloride (Saline Flush) 10 ml IV Q8 [facility] Last Admin: 08/17/16 06:16 Dose: 10 ml Warfarin Sodium (Coumadin) 3.75 mg PO [facility] Last Admin: 08/16/16 21:13 Dose: 3.75 mg Medical - DS: Hosp Hospital course: Mr. Pineda is a 75 year old male 08/14/16- 75-year-old patient with ESRD on hemodialysis Recently had a complicated hospitalization stay at [facility] on mechanical ventilation. He was subsequently discharged to rehabilitation at [facility] and was discharged last week home. He is now admitted with weakness, fall ,complicated UTI, likely CHF exacerbation from volume overload. admitted as inpatient telemetry. Ruling out presyncope. Patient has recent episodes of bradycardia however was a poor operative candidate for pacemaker placement. patient will be monitored while be treated with antibiotics, aggressive physical therapy, continued hemodialysis and possible transfer to SNF 1/2-patient doing well. No overnight events. Hemodialysis today. No fever chills nausea vomiting or concerns per nursing staff. No significant telemetry events. august 16, 2016: today, the patient says he still has some left hip discomfort and is adamant that that is the only reason that he cannot stand up and help with his transfers. However he also believes that he could transfer himself, without a Karuna lift, and according to the nurses, he clearly cannot. He denies feeling generally weak, and says his main problem is the hip pain. his urinary tract infection was reported as a pansensitive Klebsiella. August 17, 2016: [place], and then was sent to rehabilitation. Apparently he left rehabilitation earlier, before the physical therapist felt that he was ready, due to his insurance co- pay. After arriving home, he experienced decline, and was subsequently diagnosed with a urinary tract infection. Unfortunately he was so weak that his could not manage him at home, so he was admitted here for further observation and investigation. he has remained stable from a vital sign standpoint here. He did undergo dialysis yesterday, and appears to have tolerated that well. he was complaining of very significant left hip pain, and did have x-rays. His x-rays were reviewed with Dr. Moreno from orthopedics, who did not see anything obvious on the x-rays, and felt the patient should continue to pursue physical therapy. Today, the patient says the hip pain is nearly gone. He has been getting out of bed with the useof a Karuna yesterday, and today was using a sit to stand device. [facility] agreed [facility] the patientfor ongoing rehabilitation and strengthening prior to returning home. #1. Failure to thrive -is a little unclear if this is related to his recent prolonged hospitalization , or to leaving the rehabilitation facility early, or to recurrent UTI. He does seem to be improving but still probably need significant physical therapy prior to returning home without high risk of fall. -Because of his left hip pain, I did contact Dr. Moreno of orthopedics. He looked at his x-rays,and feels it is highly unlikely that the patient has anything reversible causing his pain. The patient is certainly not a candidate for major orthopedic surgery. There is no evidence of acute hip infection. He suggested we continue with physical therapy, and pain medication if needed.. #2. Complicated UTI. -He is clinically improving on IV antibiotics. he has a pansensitive Klebsiella infection but due to significant compromise and frailty, I would keep him on the IV Rocephin for a total of 7 days. -Brown catheter was removed this morning, and we will check a postvoid residual prior to discharge. #3. End-stage renal disease. Status post dialysis, managed by Dr. Guerrero. he will be due again for dialysis tomorrow. #4. Hypothyroidism. Continue levothyroxine. #5. Diabetes type 2. Continue Lantus plus sliding scale. with his renal insufficiency, we may need to switch his Lantus over to Levemir. #6. History of orthostatic hypotension, managed with midodrine #7. History of atrial fibrillation, with controlled rate. He is on anticoagulation for stroke prophylaxis, and INR has been therapeutic. #8.History of hyperlipidemia, gout, neuropathy. Continue usual medications. #9. CODE STATUS: DNR. #10. DVT prophylaxis: Coumadin. - Time Spent with Patient Total time spent providing and/or coordinating discharge services: Greater than 30 minutes Medical - DS: Exam - Constitutional Vitals: Vital Signs Temp Pulse Pulse Resp BP BP BP 08/17/16 07:47 98.7 F 84 24 112/70 08/17/16 07:39 08/17/16 04:00 97.7 F 111 H 24 120/78 08/16/16 23:45 98.4 F 96 H 24 128/72 08/16/16 20:00 97.7 F 99 H 24 140/84 08/16/16 16:01 97.5 F L 81 116/72 08/16/16 15:56 97.6 F 20 111/66 08/16/16 15:44 81 114/70 08/16/16 14:53 102 H 107/63 08/16/16 14:23 60 122/72 08/16/16 13:54 68 112/71 08/16/16 13:27 82 126/86 08/16/16 12:56 70 124/82 08/16/16 12:25 90 103/69 08/16/16 12:00 97.3 F L 94 H 20 120/64 120/64 Pulse Ox 08/17/16 07:47 95 08/17/16 07:39 97 08/17/16 04:00 93 08/16/16 23:45 95 08/16/16 20:00 91 08/16/16 16:01 08/16/16 15:56 96 08/16/16 15:44 08/16/16 14:53 08/16/16 14:23 08/16/16 13:54 08/16/16 13:27 08/16/16 12:56 08/16/16 12:25 08/16/16 12:00 94 Intake and Output 08/16/16 08/17/16 08/17/16 21:59 05:59 13:59 Intake Total 240 / 240 120 / 120 240 / 240 Output Total 8292 / 8292 325 / 325 100 / 100 Balance -8052 / -8052 -205 / -205 140 / 140 Intake: Oral 240 / 240 120 / 120 240 / 240 Output: Urine Catheter Amount 350 / 350 325 / 325 100 / 100 Hemodialysis UF 7942 / 7942 Other: Meal Breakfast Percent of Meal Consumed 90 Feeding Ability Independent Weight 264 lb Additional comments: on exam today,he patient is awake and alert. He is sitting up in a chair and smiling. He is looking forward to getting out of the hospital.Cardiac exam shows irregularly irregular rhythm. lungs are decreased throughout with scattered crackles. Abdomen: Is soft and nontender. Extremities: Show trace peripheral edema. neurologic exam is grossly nonfocal. Medical - DS: Data Labs on day of discharge: Labs from last 24 hours 08/17/16 08/17/16 08/17/16 03:20 03:15 03:15 WBC 10.3 RBC 3.97 L Hgb 12.1 L Hct 38.1 L MCV 96.0 MCH 30.4 MCHC 31.7 RDW 17.7 H Plt Count 352 MPV 6.8 L Total Counted 200 Seg Neutrophils % 64 Band Neutrophils % 3 Lymphocytes % 15 Monocytes % (Manual) 14 H Eosinophils % (Manual) 4 WBC Morphology Abnorm A Vacuolated Monocytes 1+ A Platelet Estimate Normal RBC Morphology Abnorm A Anisocytosis 1+ A RBC Fragments Occ A PT 24.0 H INR 2.1 H Sodium 132 L Potassium 3.5 Chloride 96 Carbon Dioxide 22 Anion Gap 14.0 BUN 38 H Creatinine 2.6 H GFR Calculation 23 Glucose 128 H Uric Acid 4.1 Calcium 8.8 Phosphorus 3.4 Magnesium 1.9 Total Bilirubin 0.2 Direct Bilirubin < 0.2 GGT 69 H AST 23 ALT 16 Alkaline Phosphatase 104 Lactate Dehydrogenase 268 H Total Protein 6.9 Albumin 2.9 L Globulin 4.0 H Albumin/Globulin Ratio 0.7 L Triglycerides 142 urinalysis and culture: Klebsiella pneumonia, pansensitive. eft hip x-ray did show bilateral total hip prostheses with normal positioning. There are also vascular clips in the right groin, and severe atherosclerotic disease noted. chest x-ray from August 15, 2016, shows resolved cardiomegaly and no pulmonary vascular congestion. There were possible small bilateral pleural effusions. Dual lumen catheter is placed through the right internal jugular vein into the superior vena cava. Medical - DS: A/P - Patient/Caregiver Discharge Instructions Activity: as per physical therapy Diet: Renal/Consistent Carbs - Follow up Plan Follow up with: Ani Hubbard DO [Primary Care Provider] - Disposition: Xf SNF Prognosis: Fair Rehab Potential: Fair I certify that the patient requires SNF services: Yes Overall status at discharge: patient is progressing back to baseline Medical - DS: Qual - VTE Deep Vein Thrombosis/Pulmonary Embolism Present on Admission: No
[2016-08-17] MEDS: HEPARIN 5,000 UNIT/ML VIAL SQ SCH (09:29)
[2016-08-18] MEDS ORDERED: METOLAZONE 2.5 MG TABLET PO SCH (07:30)
[2016-08-18] MEDS ORDERED: CALCITRIOL 0.25 MCG CAPSULE PO SCH (09:00)
--- NOTE | 2016-08-25 16:25 | Emergency Department Note ---
General Adult HPI - General Chief complaint: Fall Stated complaint: Left hip pain Time Seen by Provider: 08/14/16 06:53 Source: patient Mode of arrival: EMS Limitations: no limitations - History of Present Illness HPI Narrative: patient complain of increased weakness. was admitted in [place] for pacemaker placement but had some complications. complaining of increased wekness after be9ng discharged home. no fever, sob or chest pain. - Related Data Home Medications Medication Instructions Recorded Confirmed levothyroxine 150 mcg tablet 150 mcg PO QDAY tab 03/11/15 08/24/16 cyanocobalamin (vit B-12) 1,000 1,000 mcg PO QDAY tab 03/16/15 08/24/16 mcg tablet fluticasone 50 mcg/actuation 2 inh INHALATION HS each 10/06/15 08/24/16 blister powder for inhalation insulin aspart 100 unit/mL 1 unit SUB-Q ONCE PRN 12/17/15 08/24/16 subcutaneous pen insulin glargine 100 unit/mL (3 34 unit SUB-Q QDAY ml 12/17/15 08/24/16 mL) subcutaneous pen ranitidine 150 mg tablet 150 mg PO QHS 04/25/16 08/24/16 coenzyme Q10 100 mg capsule 100 mg PO QDAY 05/25/16 08/24/16 Atorvastatin [Lipitor] 30 mg PO QDAY 08/14/16 08/24/16 acetaminophen 300 mg-codeine 30 mg 1 tab PO Q6H 08/24/16 08/24/16 tablet bisacodyl 10 mg rectal suppository 10 mg PA QDAY PRN supp 08/24/16 08/24/16 metolazone 2.5 mg tablet 2.5 mg PO QOD 08/24/16 08/24/16 sodium phosphates 19 gram-7 118 ml PA ONCE 08/24/16 08/24/16 gram/118 mL enema Previous Rx's Medication Instructions Recorded gabapentin 300 mg capsule 300 mg PO QDAY #90 cap 01/25/16 allopurinol 100 mg tablet 200 mg PO QDAY #60 tab 03/23/16 bumetanide 2 mg tablet 3 mg PO BIDD #120 tab 04/25/16 calcitriol 0.25 mcg capsule 0.25 mcg PO QOD 30 Days 04/29/16 midodrine 2.5 mg tablet 2.5 mg PO TID PRN #90 tab 08/11/16 0.9 % Sodium Chloride [Saline 10 ml IV Q8 syringe 08/17/16 Flush] Accu-Chek 1 each FS ACHS strip 08/17/16 Acetaminophen [Tylenol] 650 mg PO Q4-6HP PRN #0 tab 08/17/16 Insulin Aspart [Novolog Flexpen] See Protocol SQ ACHS #1 insuln.pen 08/17/16 Insulin Lispro [Humalog] 0 unit SQ ACHS unit 08/17/16 Lactobacillus [Culturelle] 1 cap PO HS cap 08/17/16 Multivit,Ther Iron,Ca,FA & Min 1 tab PO DAILY tab 08/17/16 [Multivitamin W/Minerals] Sennosides/Docusate Sodium [Senna 1 tab PO HS tab 08/17/16 Plus Tablet] Warfarin [Coumadin] 3.75 mg PO HS #0 tab 08/17/16 cefTRIAXone [Rocephin] 2 gm IV DAILY 3 Days 08/17/16 Allergies Allergy/AdvReac Type Severity Reaction Status Date / Time adhesive Allergy Unknown Unknown Verified 08/22/16 14:37 hydrocodone AdvReac Mild Dizziness Verified 08/22/16 14:37 morphine [MORPHINE] AdvReac Mild Nausea/Vomi Verified 08/22/16 14:37 ting Oxycodone AdvReac Mild Vomiting Verified 08/22/16 14:37 Review of Systems All systems ED: reviewed and negative except as stated. Constitutional: Denies: fever Eyes: Denies: eye pain ENT ED: Denies: ear pain Cardiovascular: Denies: chest pain Respiratory: Denies: cough Gastrointestinal: Denies: abdominal pain, nausea Genitourinary: Denies: urgency, dysuria Musculoskeletal: Denies: back pain Integumentary: Denies: rash Past Medical History - Past Medical History Medical history: Reports: arthritis, atrial fibrillation, CHF, COPD, dementia, diabetes, GERD, hyperlipidemia, hypertension, peripheral artery disease, renal disease, thyroid disease, other (Stage III ckd, L, sleep apnea, obesity, diabetes type 2 hyperlipidemia, hypertension, atrial fibrillation) Surgical history ED: Reports: angioplasty/stent, hip replacement Psychiatric history: Reports: depression Family history: Reports: non-contributory - Social History smoking status: Never smoker Alcohol use: Reports: Rarely Physical Exam - General Limitations: no limitations General appearance: alert - Head Head exam: atraumatic - Eye Eye exam: Present: normal appearance - ENT ENT exam: normal exam - Neck Neck exam: Present: normal inspection, full ROM - Chest Chest inspection: Present: normal inspection - Respiratory Respiratory exam: Present: normal lung sounds bilaterally. Absent: respiratory distress, wheezes - Cardiovascular Cardiovascular exam: Present: regular rate, normal rhythm. Absent: bradycardia - Abdominal Exam Abdominal exam: Present: soft. Absent: distention, tenderness - Extremities Exam Extremities exam: Present: normal inspection, full ROM - Back Exam Back exam: Present: normal inspection, full ROM. Absent: tenderness - Neurological Exam Neurological exam: Present: alert, oriented X3, CN II-XII intact - Psychiatric Psychiatric exam: Present: normal affect, normal mood. Absent: depressed - Skin Skin exam: Present: warm, intact Course Vital Signs Temperature 97.2 F L 08/14/16 05:52 Pulse Rate 93 H 08/14/16 05:52 Respiratory Rate 18 08/14/16 05:52 Blood Pressure 152/132 08/14/16 05:52 Pulse Oximetry (%) 95 08/14/16 05:52 Temperature 98.7 F 08/17/16 10:45 Pulse Rate 84 08/17/16 10:45 Respiratory Rate 24 08/17/16 10:45 Blood Pressure 112/70 08/17/16 10:45 Pulse Oximetry (%) 95 08/17/16 10:45 Medical Decision Making - Lab Data Result diagrams: 08/17/16 03:15 08/17/16 03:15 Lab Results 08/14/16 08/14/16 08/14/16 Range/Units 07:00 07:00 07:00 WBC 8.8 (4.5-11.0) K/mcL RBC 3.68 L (4.50-5.90) M/mcL Hgb 11.3 L (13.5-16.5) g/dL Hct 35.1 L (41.0-55.0) % POC Hct 36.0 L (41.0-55.0) % MCV 95.3 (80.0-100.0) fL MCH 30.7 (26.0-34.0) pg MCHC 32.2 (31.0-36.0) g/dL RDW 18.0 H (11.5-14.5) % Plt Count 310 (140-440) K/mcL MPV 7.3 L (7.4-10.4) fL Gran % 75.7 (38.0-78.0) % Lymph % (Auto) 11.5 L (15.5-49.0) % [place] % (Auto) 10.0 H (1.0-9.0) % Eos % (Auto) 2.3 (0.0-7.0) % Baso % (Auto) 0.5 (0.0-2.0) % Gran # 6.7 (1.8-8.0) K/mcL Lymph # 1.0 L (1.5-4.8) K/mcL [place] # 0.9 (0.1-0.9) K/mcL Eos # 0.2 (0.0-0.7) K/mcL Baso # 0 (0.0-0.3) K/mcL POC Sodium 133 (133-145) mmol/L Sodium 132 L (133-145) mmol/L POC Potassium 3.4 (3.3-5.1) mmol/L Potassium 3.5 (3.3-5.1) mmol/L POC Chloride 95 L (96-108) mmol/L Chloride 91 L (96-108) mmol/L Carbon Dioxide 24 (22-30) mmol/L POC Total CO2 27 (22-30) mmol/L Anion Gap 17.0 H (8-16) POC BUN 50 H (8-23) mg/dl BUN 55 H (8-23) mg/dl Creatinine 4.2 H (0.7-1.2) mg/dl POC Creatinine 4.0 H (0.7-1.2) mg/dl GFR Calculation 13 Glucose 91 (70-105) mg/dL POC Glucose 94 (70-105) mg/dL Calcium 9.3 (8.6-10.4) mg/dl POC WB Ioniz Calcium 1.18 (1.16-1.32) mmol/L Total Bilirubin 0.3 (0.0-1.0) mg/dL AST 17 (0-37) U/l ALT 16 (0-40) U/l Alkaline Phosphatase 109 (39-117) U/L NT-Pro-B Natriuret Pep (0-450) pg/ml Total Protein 6.6 (5.9-8.4) gm/dL Albumin 3.0 L (3.2-5.2) gm/dL Globulin 3.6 (2.2-3.7) gm/dL Albumin/Globulin Ratio 0.8 L (1.0-2.3) Procalcitonin (<0.10) ng/mL Urine Color Urine Appearance Urine pH (5.0-9.0) Ur Specific [place] (1.000-1.035) Urine Protein (NEG) mg/dL Urine Glucose (UA) (NEG) mg/dL Urine Ketones (NEG) mg/dL Urine Occult Blood (<0.03) mg/dL Urine Nitrate (NEG) Urine Bilirubin (NEG) mg/dL Urine Urobilinogen (NEG) mg/dL Ur Leukocyte Esterase (NEG) /uL Urine RBC (0-1) /hpf Urine WBC (0-4) /hpf Ur Squamous Epith Cells (0-4) /hpf Amorphous Crystals (0) /hpf Urine Bacteria (0) /hpf Urine Mucus (0) /hpf Ur Culture Indicated? 08/14/16 08/14/16 08/14/16 Range/Units 07:00 07:00 10:38 WBC (4.5-11.0) K/mcL RBC (4.50-5.90) M/mcL Hgb (13.5-16.5) g/dL Hct (41.0-55.0) % POC Hct (41.0-55.0) % MCV (80.0-100.0) fL MCH (26.0-34.0) pg MCHC (31.0-36.0) g/dL RDW (11.5-14.5) % Plt Count (140-440) K/mcL MPV (7.4-10.4) fL Gran % (38.0-78.0) % Lymph % (Auto) (15.5-49.0) % [place] % (Auto) (1.0-9.0) % Eos % (Auto) (0.0-7.0) % Baso % (Auto) (0.0-2.0) % Gran # (1.8-8.0) K/mcL Lymph # (1.5-4.8) K/mcL [place] # (0.1-0.9) K/mcL Eos # (0.0-0.7) K/mcL Baso # (0.0-0.3) K/mcL POC Sodium (133-145) mmol/L Sodium (133-145) mmol/L POC Potassium (3.3-5.1) mmol/L Potassium (3.3-5.1) mmol/L POC Chloride (96-108) mmol/L Chloride (96-108) mmol/L Carbon Dioxide (22-30) mmol/L POC Total CO2 (22-30) mmol/L Anion Gap (8-16) POC BUN (8-23) mg/dl BUN (8-23) mg/dl Creatinine (0.7-1.2) mg/dl POC Creatinine (0.7-1.2) mg/dl GFR Calculation Glucose (70-105) mg/dL POC Glucose (70-105) mg/dL Calcium (8.6-10.4) mg/dl POC WB Ioniz Calcium (1.16-1.32) mmol/L Total Bilirubin (0.0-1.0) mg/dL AST (0-37) U/l ALT (0-40) U/l Alkaline Phosphatase (39-117) U/L NT-Pro-B Natriuret Pep 4710.0 H (0-450) pg/ml Total Protein (5.9-8.4) gm/dL Albumin (3.2-5.2) gm/dL Globulin (2.2-3.7) gm/dL Albumin/Globulin Ratio (1.0-2.3) Procalcitonin 0.44 (<0.10) ng/mL Urine Color Yellow Urine Appearance Cloudy Urine pH 6.0 (5.0-9.0) Ur Specific [place] 1.010 (1.000-1.035) Urine Protein 100 A (NEG) mg/dL Urine Glucose (UA) Negative (NEG) mg/dL Urine Ketones Neg (NEG) mg/dL Urine Occult Blood Neg (<0.03) mg/dL Urine Nitrate Neg (NEG) Urine Bilirubin Neg (NEG) mg/dL Urine Urobilinogen Neg (NEG) mg/dL Ur Leukocyte Esterase 500 A (NEG) /uL Urine RBC 2 H (0-1) /hpf Urine WBC > 182 H (0-4) /hpf Ur Squamous Epith Cells 0 (0-4) /hpf Amorphous Crystals Few A (0) /hpf Urine Bacteria Mod A (0) /hpf Urine Mucus Few (0) /hpf Ur Culture Indicated? Yes Disposition Disposition: Xfer As Outpt/Obs ([facility]) Condition: Fair
== END 2016-08-17 11:10 ==
LOC: ED 05:51 → MEDSUR 05:51 → INTOOBSV 12:42 → SUATTDRO 12:42 → OBSVTOIN 12:42 → MEDSUR 12:46 → ICU 14:35 → MEDSUR 08-16 16:30
PROVIDERS: ADMIT Internal Medicine; ATTEND Internal Medicine

== ENCOUNTER 2018-01-01 20:55 | Inpatient (IN) ==
[2018-01-01 22:28] LABS: Basophils # (Auto) 0 K/mcL (0.0-0.3); Basophils % (Auto) 0 % (0.0-2.0); Eosinophils # (Auto) 0.1 K/mcL (0.0-0.7); Eosinophils % (Auto) 0.4 % (0.0-7.0); Granulocytes % (Auto) 92.1 % (38.0-78.0); Lymphocytes # (Auto) 0.7 K/mcL (1.5-4.8); Lymphocytes % (Auto) 4.4 % (15.5-49.0); Mean Cell Volume 100.7 fL (80.0-100.0); Mean Corpuscular Hemoglobin 32.2 pg (26.0-34.0); Monocytes # (Auto) 0.5 K/mcL (0.1-0.9); Monocytes % (Auto) 3.1 % (1.0-12.0); Platelet Count 113 K/mcL (140-440); RBC 4.14 M/mcL (4.50-5.90); Red Cell Distribution Width 17.3 % (11.5-14.5)
[2018-01-01 23:10] LABS: ALT/SGPT 18 U/l (0-40); Albumin 3.8 gm/dL (3.2-5.2); Albumin/Globulin Ratio 1.2 (1.0-2.3); Alkaline Phosphatase 144 U/L (39-117); Blood Urea Nitrogen 42 mg/dl (8-23); C-Reactive Protein 1.4 mg/dl (0.0-0.8)
[2018-01-02] MEDS ORDERED: VANCOMYCIN 1,000 MG in 0.9 % SODIUM CHLORIDE 250 ML IV ONE ×2 (00:10→01:05)
[2018-01-02] MEDS ORDERED: PIPERACILLIN SODIUM/TAZOBACTAM 3.375 GM in DEXTROSE 5% IN WATER 50 ML IV ONE (00:10)
--- NOTE | 2018-01-02 00:30 | Emergency Department Note ---
Weakness HPI - General Chief complaint: Weakness Stated complaint: weakness Time Seen by Provider: 01/01/18 21:18 Source: patient, family, EMS Mode of arrival: EMS - History of Present Illness HPI Narrative: This 77-year-old dialysis patient became dizzy and fell this evening when trying to transfer between bathroom back to his wheelchair and he was unable to get up. He was shaky. He more or less collapsed according to his . He usually uses a walker to help him. He is unable to stand for very long at a time. In the last several weeks at dialysis they have been trying to take more fluid off could have had difficulty doing so. He is been on an antibiotic and then when this was stopped or was getting worse he was switched to a different antibiotic. He has describes that his chest and back hurt from the fall and he feels weaker and sicker. He has been struggling with constipation. He tries to follow a renal diet. He has had worsening edema in his lower extremities. He has difficulties putting them up due to pain in his back when he elevates his feet. He has recently finished treatment with antibiotic for pneumonia. REVIEW OF SYSTEMS: Denies fever, sweats. Has had a few chills. Has had some chest pain in the last 3-4 days. Has had some coughing. Denies abdominal pain. He has felt nauseated. He denies any vomiting or diarrhea or hematochezia. He has been constipated some and for this takes lactulose. He has a history of a hemorrhoid. Denies headaches Has had some significant anxiety and depression. Has felt cold a lot but he/his attributes this to his dialysis. - Related Data Home Medications Medication Instructions Recorded Confirmed coenzyme Q10 100 mg capsule 100 mg PO QDAY 05/25/16 09/25/17 turmeric root extract 500 mg 500 mg PO QDAY 07/11/17 09/25/17 capsule vitamin B complex 1 tab PO DAILY 07/11/17 09/25/17 Gabapentin [Neurontin] 100 mg PO DAILY 07/17/17 09/25/17 calcium carbonate 200 mg calcium 200 mg PO TID tab 11/22/17 (500 mg) chewable tablet Calcium Carbonate [Tums] 500 mg CHEWED AC 01/02/18 01/02/18 Lactobacillus Acidophilus/Fos 1 tab PO DAILY 01/02/18 01/02/18 [Acidophilus Probiotic Tablet] Previous Rx's Medication Instructions Recorded Accu-Chek 1 each FS ACHS strip 08/17/16 Acetaminophen [Tylenol] 650 mg PO Q4-6HP PRN #0 tab 08/17/16 Lactobacillus [Culturelle] 1 cap PO HS cap 08/17/16 Sennosides/Docusate Sodium [Senna 1 tab PO HS tab 08/17/16 Plus Tablet] nystatin 100,000 unit/gram topical 1 applic TOPICAL BID #30 each 09/07/16 powder folic acid 3 mg-vit B complex with 1 tab-cap PO QDAY #30 tab 10/04/16 C-selenium 70 mcg-zinc 15 mg tablet diabetic supplies, miscellan. See Dose Instructions .ROUTE 12/22/16 .MEDSUPPLY #1 each Waffle Cushion #1 each 04/05/17 bumetanide 2 mg tablet 3 mg PO .COMPLEX #135 tab 05/18/17 atorvastatin 40 mg tablet 40 mg PO QDAY #30 tab 06/01/17 ranitidine 150 mg tablet 150 mg PO QHS #30 tab 06/01/17 silver ER topical gel,extended 1 applic TOPICAL Q12H #89 ml 06/14/17 release metolazone 2.5 mg tablet 2.5 mg PO QOD #15 tab 07/10/17 fluticasone 50 mcg/actuation nasal 2 spray INTRANASAL QDAY #9.9 g 09/07/17 spray,suspension insulin glargine (U-100) 100 28 unit SUB-Q QHS #15 ml 09/11/17 unit/mL (3 mL) subcutaneous pen midodrine 2.5 mg tablet 2.5 mg PO TID PRN #90 tab 09/15/17 insulin aspart U-100 100 unit/mL 5 unit SUB-Q QDAY #2 ml 09/25/17 subcutaneous pen blood sugar diagnostic strips See Dose Instructions .ROUTE 09/26/17 .MEDSUPPLY #100 each warfarin 5 mg tablet 5 mg PO .COMPLEX #90 tab 10/12/17 warfarin 6 mg tablet 6 mg PO .COMPLEX #30 tab 10/12/17 levothyroxine 150 mcg tablet 150 mcg PO QDAY #30 tab 10/26/17 allopurinol 100 mg tablet 100 mg PO BID #180 tab 11/08/17 albuterol sulfate HFA 90 2 puff INHALATION Q4H PRN #1 g 11/28/17 mcg/actuation aerosol inhaler lactulose 10 gram/15 mL oral 20 g PO BID PRN #236 ml 11/30/17 solution Azithromycin [Zithromax] 250 mg PO DAILY #6 tab 12/16/17 levofloxacin 500 mg tablet 500 mg PO .QOD #5 tab 12/18/17 Allergies Allergy/AdvReac Type Severity Reaction Status Date / Time adhesive Allergy Unknown Unknown Verified 01/01/18 21:05 hydrocodone AdvReac Mild Dizziness Verified 01/01/18 21:05 morphine [MORPHINE] AdvReac Mild Nausea/Vomi Verified 01/01/18 21:05 ting Oxycodone AdvReac Mild Vomiting Verified 01/01/18 21:05 Past Medical History - Past Medical History Medical history: Reports: arthritis, atrial fibrillation (Cardioverted 2 then left to be chronic.), CHF, COPD, dementia, DM, GERD, hyperlipidemia, hypertension, hypothyroidism, obesity, peripheral artery disease, renal disease (Dialysis started in 2015.), other (Chronic anticoagulation. Pneumonia 3-4 times in the last several years. Gout. Anemia. ANGELICA - declines CPAP use. Hypoxia. Vitamin D deficiency. Tachy-delaney.) Psychiatric history: Reports: anxiety, depression Surgical history ED: Reports: angioplasty/stent (popliteal bypass right. Graft clean-up.), cataract (bilateral), hip replacement - Social History smoking status: Former smoker Alcohol use: Reports: Rarely Physical Exam Limitations: physical limitation General appearance: in distress (pain with some movements of torso.), lethargic , malaise (moderate.) Head: atraumatic, normocephalic Eye: Present: EOMI ENT: mucous membranes dry (mildly.) Neck: Present: trachea midline. Absent: lymphadenopathy, thyromegaly Respiratory: Present: normal lung sounds bilaterally. Absent: respiratory distress, wheezes, stridor, accessory muscle use, prolonged expiratory phase Cardiovascular: Present: regular rate, normal rhythm. Absent: systolic murmur, diastolic murmur Abdominal: Present: soft. Absent: distention, tenderness, guarding, rebound, rigidity, organomegaly, mass Extremities: Present: pedal edema, pretibial edema (Moderately tense and firm with 3/4 pitting.), other (Moderate deep purple pink and warmth.) Back: Absent: CVA tenderness (R), CVA tenderness (L) Neurological: Present: other (sleepy, mostly eyes closed and resting, drifts easily into sleep.) Psychiatric: Present: flat affect Skin: Present: warm, dry Course Vital Signs Temperature 98.6 F 01/01/18 20:56 Pulse Rate 117 H 01/01/18 20:56 Respiratory Rate 20 01/01/18 20:56 Blood Pressure 107/56 01/01/18 20:56 Temperature 98.6 F 01/01/18 20:56 Pulse Rate 119 H 01/02/18 00:00 Respiratory Rate 20 01/01/18 22:23 Blood Pressure 112/61 01/02/18 00:00 Pulse Oximetry (%) 94 01/02/18 00:00 Weakness - MDM Narrative Medical decision making narrative: Patient's white count of 15.4, significant weakness, sodium of 129, needing dialysis in the morning inability to stand or his to help him get up if if and when he falls, etc., is felt best for patient to be admitted, given IV antibiotics, monitored carefully, etc. I spoke with Dr. Davalos, who accepts consulting on patient for dialysis in the morning. Dr. Juares was contacted and kindly accepted. Will give a single dose of Zosyn and blood cultures. Bladder scan showed 40 cc. He was not catheterized for a urine specimen. Creatinine was 6.0, sodium 159. - Lab Data Lab results reviewed: Yes I reviewed the patient's lab results. Result diagrams: 01/01/18 22:01/01/18 22:01 Lab Results 01/01/18 01/01/18 01/01/18 Range/Units 22:01 22: 22:01 WBC 15.4 H (4.5-11.0) K/mcL RBC 4.14 L (4.50-5.90) M/mcL Hgb 13.3 L (13.5-16.5) g/dL Hct 41.7 (41.0-55.0) % MCV 100.7 H (80.0-100.0) fL MCH 32.2 (26.0-34.0) pg MCHC 32.0 (31.0-36.0) g/dL RDW 17.3 H (11.5-14.5) % Plt Count 113 L (140-440) K/mcL MPV 6.8 L (7.4-10.4) fL Gran % 92.1 H (38.0-78.0) % Lymph % (Auto) 4.4 L (15.5-49.0) % [place] % (Auto) 3.1 (1.0-12.0) % Eos % (Auto) 0.4 (0.0-7.0) % Baso % (Auto) 0 (0.0-2.0) % Gran # 14.1 H (1.8-8.0) K/mcL Lymph # (Auto) 0.7 L (1.5-4.8) K/mcL [place] # (Auto) 0.5 (0.1-0.9) K/mcL Eos # (Auto) 0.1 (0.0-0.7) K/mcL Baso # (Auto) 0 (0.0-0.3) K/mcL Sodium 129 L (133-145) mmol/L Potassium 4.3 (3.3-5.1) mmol/L Chloride 86 L (96-108) mmol/L Carbon Dioxide 26 (22-30) mmol/L Anion Gap 17.0 H (8-16) BUN 42 H (8-23) mg/dl Creatinine 6.0 H* (0.7-1.2) mg/dl GFR Calculation 8 Glucose 178 H (70-105) mg/dL Calcium 9.0 (8.6-10.4) mg/dl Total Bilirubin 0.4 (0.0-1.0) mg/dL AST 15 (0-37) U/l ALT 18 (0-40) U/l Alkaline Phosphatase 144 H (39-117) U/L Troponin T 0.14 H* (0-0.03) ng/ml C-Reactive Protein 1.4 H (0.0-0.8) mg/dl Total Protein 6.9 (5.9-8.4) gm/dL Albumin 3.8 (3.2-5.2) gm/dL Globulin 3.1 (2.2-3.7) gm/dL Albumin/Globulin Ratio 1.2 (1.0-2.3) - Radiology Data Radiology results reviewed: Yes I reviewed the patient's radiology results. - EKG Data EKG results narrative: No acute ACS findings. This ECG will be read by a restaurant hourly manager. Disposition Pt seen by STRUCTURAL ANALYST/PA only: No Clinical Impression: Chronic renal failure, stage 5, Fluid retention in legs, Bilateral lower leg cellulitis, Hyponatremia, Oxygen dependent, Chronic atrial fibrillation, Weakness, Chronic constipation, Chronic anticoagulation Leukocytosis Qualifiers: Leukocytosis type: leukemoid reaction Qualified Code(s): D72.823 - Leukemoid reaction Diabetes mellitus type 2, uncontrolled, without complications Qualifiers: Diabetes mellitus shelter insulin use: unspecified local intermodal truck driver insulin use status Qualified Code(s): E11.65 - Type 2 diabetes mellitus with hyperglycemia Disposition: Xfer As Inpt ([facility]) Condition: Serious Referrals: Ani Hubbard DO [Primary Care Provider] -
[2018-01-02] MEDS ORDERED: ACETAMINOPHEN 325 MG TABLET PO PRN (01:05)
[2018-01-02] MEDS ORDERED: VANCOMYCIN PER PHARMACY IV SCH (01:05)
[2018-01-02] MEDS ORDERED: PIPERACILLIN SODIUM/TAZOBACTAM 3.375 GM in DEXTROSE 5% IN WATER 50 ML IV SCH (01:05)
[2018-01-02] MEDS ORDERED: ONDANSETRON 4 MG/2 ML VIAL IV PRN (01:05)
[2018-01-02] MEDS ORDERED: ONDANSETRON 4 MG/2 ML VIAL ONE (01:40)
[2018-01-02] MEDS ORDERED: NOREPINEPHRINE BITARTRATE 4 MG/4 ML AMPUL IV ONE (01:50)
[2018-01-02] MEDS ORDERED: 0.9 % SODIUM CHLORIDE 250 ML IV SCH ×2 (02:00→03:30)
[2018-01-02] MEDS ORDERED: NOREPINEPHRINE BITARTRATE 16 MG in 0.9 % SODIUM CHLORIDE 234 ML IV SCH (02:00)
[2018-01-02] MEDS ORDERED: VASOPRESSIN 20 UNIT/ML VIAL ONE (03:18)
[2018-01-02] MEDS ORDERED: HEPARIN/NS 500 ML IV ONE (03:23)
[2018-01-02] MEDS: VASOPRESSIN 20 UNIT in DEXTROSE 5% IN WATER 99 ML IV SCH ×2 (03:53→11:05)
[2018-01-02] MEDS ORDERED: 0.9 % SODIUM CHLORIDE 10 ML SYRINGE IV PRN (03:54)
[2018-01-02] MEDS ORDERED: HEPARIN/NS 500 ML IV SCH (04:00)
--- NOTE | 2018-01-02 04:08 | Internal Med History&Physical ---
Medical - H&P: [facility] Patient information: Note initiated : 01/02/18 at 4:04 am Service Date, if different from initiated Date: [] Patient: David Pineda a 77 y/o M admitted on 01/02/18 for weakness. Chief Complaint: [] Chief complaint: SOB History of present illness: Mr. Pineda is a 77 year old M with ESRD On HD presents with worsning SOB over 5 days Patient was recently treated for her pneumonia on levaquin for 7 days. Over the last 5 days patient's symptoms have progressively deteriorated however he did not present to the ER until his symptoms have become profoundly worse with dizziness, dyspnea and subsequent fall today. He complains of inability to perform activities of daily living and has been unable to sleep due to profound shortness of breath . He presents with his Mari. Initial workup was significant for bilateral infiltrates/pulmonary edema along with white count over 15,000. Systolics have been hovering around 80s. He denies recent sick contacts. Denies yellow productive sputum. Unclear vaccination status. Subsequently hospitalist service and nephrology was consulted by ER. At the time of evaluation patient is fairly dyspneac, confused and unable to talk in full sentences. He endorses to low-grade fever but denies shaking chills sweats. Endorses to significant lower extremity swelling worsening over the last few days. He has been unable to sleep for the last couple of nights. He is been feeling very dizzy and shaky. He Denies diarrhea dysuria or joint pain and rash . His last hemodialysis was 2 days ago. Review of systems 10 point review of system was performed and is negative except as discussed above Medical - H&P: PMH Medical history: ncounter for Health Maintenance Examination in Adult (Chronic) 09/25/17 Pain (Chronic) Constipation (Chronic) Hyperkalemia (Acute) Congestive heart failure (Acute) Tachy-delaney syndrome (Acute) Complicated UTI (urinary tract infection) (Acute) ESRD (end stage renal disease) on dialysis (Acute) Edema (Chronic) Anemia in chronic renal disease (Chronic) Hb 13.1, no indication for REZA Gout (Chronic) on allopurinol tolerating with no Adverse effects uric acid level is 4.1 08/17/16 Proteinuria (Chronic) likely diabetic kidney disease work up so far negative if BP permits will start losartan in low dose Hypoxia, sleep related (Chronic) Obstructive sleep apnea (Chronic) Vitamin D deficiency (Chronic) 01/21/2014 Claudication (Chronic) 01/21/2014 Obesity (Chronic) 01/21/2014 Diabetes mellitus, type II (Chronic) Hyperlipidemia (Chronic) 01/21/2014 Hypertension (Chronic) goal BP is less than 140/80 given DM and CKD BP at goal follow low sodium diet Atrial fibrillation (Chronic) 10/26/2014 Chronic kidney failure (Chronic) On hemodialysis Acute coronary syndrome (Resolved) Acute on chronic renal failure (Resolved) Hypertensive renal disease (Resolved) BP fluctuates ct carvedilol at 25mg bid and diuretics will obtain 24 hour BP monitoring and follow Open wound (Resolved) 02/27/2015 Renal failure (Resolved) CKD (chronic kidney disease), stage III (Inactive) Most recent s.creat is 2.45 which equals to egfr of 27ml/min per MDRD equation S.creatinine 2.0-2.5-2.3-2.1-2.45 He has overt proteinuria and hematuria on his UA, UPCR Of 3.8gm PTH not elevated, no K issues, no acidosis his hepatitis B,C negative, spep negative serum and urine TERESO is negative , complements normal CKD with near nephrotic range proteinuria likely from DM type 2 with obesity and HTN as risk factors renal function stable for now, BUN 98 likely from huge doses of diuretics, NO UREMIC symptoms labs discussed with the pt and his will monitor Surgical history: History of cataract surgery (Acute) History of hip replacement (Acute) Bilateral hips Status post insertion of hemodialysis catheter (Acute) Family history: reviewed and not pertinent Pertinent family history: Father Heart attack Brother Brain cancer Social history: smoking status: Former smoker alcohol intake frequency: former alcohol drinker to mari Lives at home Medical - H&P: Meds Home Medications Medication Instructions Recorded Confirmed Type coenzyme Q10 100 mg capsule 100 mg PO QDAY 05/25/16 09/25/17 History Accu-Chek 1 each FS ACHS strip 08/17/16 09/25/17 Rx Acetaminophen [Tylenol] 650 mg PO Q4-6HP PRN #0 tab 08/17/16 09/25/17 Rx Lactobacillus [Culturelle] 1 cap PO HS cap 08/17/16 09/25/17 Rx Sennosides/Docusate Sodium [Senna 1 tab PO HS tab 08/17/16 09/25/17 Rx Plus Tablet] nystatin 100,000 unit/gram topical 1 applic TOPICAL BID #30 each 09/07/16 Rx powder folic acid 3 mg-vit B complex with 1 tab-cap PO QDAY #30 tab 10/04/16 09/25/17 Rx C-selenium 70 mcg-zinc 15 mg tablet diabetic supplies, miscellan. See Dose Instructions .ROUTE 12/22/16 09/25/17 Rx .MEDSUPPLY #1 each Waffle Cushion #1 each 04/05/17 09/25/17 Rx bumetanide 2 mg tablet 3 mg PO .COMPLEX #135 tab 05/18/17 09/25/17 Rx atorvastatin 40 mg tablet 40 mg PO QDAY #30 tab 06/01/17 09/25/17 Rx ranitidine 150 mg tablet 150 mg PO QHS #30 tab 06/01/17 09/25/17 Rx silver ER topical gel,extended 1 applic TOPICAL Q12H #89 ml 06/14/17 09/25/17 Rx release metolazone 2.5 mg tablet 2.5 mg PO QOD #15 tab 07/10/17 09/25/17 Rx turmeric root extract 500 mg 500 mg PO QDAY 07/11/17 09/25/17 History capsule vitamin B complex 1 tab PO DAILY 07/11/17 09/25/17 History Gabapentin [Neurontin] 100 mg PO DAILY 07/17/17 09/25/17 History fluticasone 50 mcg/actuation nasal 2 spray INTRANASAL QDAY #9.9 g 09/07/1709/25 Rx spray,suspension insulin glargine (U-100) 100 28 unit SUB-Q QHS #15 ml 09/11/17 09/25/17 Rx unit/mL (3 mL) subcutaneous pen midodrine 2.5 mg tablet 2.5 mg PO TID PRN #90 tab 09/15/17 09/25/17 Rx insulin aspart U-100 100 unit/mL 5 unit SUB-Q QDAY #2 ml 09/25/17 09/25/17 Rx subcutaneous pen blood sugar diagnostic strips See Dose Instructions .ROUTE 09/26/17 Rx .MEDSUPPLY #100 each warfarin 5 mg tablet 5 mg PO .COMPLEX #90 tab 10/12/17 12/28/17 Rx warfarin 6 mg tablet 6 mg PO .COMPLEX #30 tab 10/12/17 12/28/17 Rx levothyroxine 150 mcg tablet 150 mcg PO QDAY #30 tab 10/26/17 Rx allopurinol 100 mg tablet 100 mg PO BID #180 tab 11/08/17 Rx calcium carbonate 200 mg calcium 200 mg PO TID tab 11/22/17 History (500 mg) chewable tablet albuterol sulfate HFA 90 2 puff INHALATION Q4H PRN #1 g 11/28/17 Rx mcg/actuation aerosol inhaler lactulose 10 gram/15 mL oral 20 g PO BID PRN #236 ml 11/30/17 Rx solution Azithromycin [Zithromax] 250 mg PO DAILY #6 tab 12/16/17 Rx levofloxacin 500 mg tablet 500 mg PO .QOD #5 tab 12/18/17 Rx Calcium Carbonate [Tums] 500 mg CHEWED AC 01/02/18 01/02/18 History Lactobacillus Acidophilus/Fos 1 tab PO DAILY 01/02/18 01/02/18 History [Acidophilus Probiotic Tablet] Allergies Allergy/AdvReac Type Severity Reaction Status Date / Time adhesive Allergy Unknown Unknown Verified 01/01/18 21:05 hydrocodone AdvReac Mild Dizziness Verified 01/01/18 21:05 morphine [MORPHINE] AdvReac Mild Nausea/Vomi Verified 01/01/18 21:05 ting Oxycodone AdvReac Mild Vomiting Verified 01/01/18 21:05 Medical - H&P: Exam - Constitutional Vitals: Temp Pulse Resp BP Pulse Ox 98.6 F 119 H 17 103/83 81 L 01/01/18 20:56 01/02/18 00:00 01/02/18 02:26 01/02/18 02:26 01/02/18 02:26 General appearance: morbidly obese, severe distress (SOB) Exam: Pupils symmetric Oral cavity dry No ear discharge Head normocephalic Neck no lymphadenopathy S1 and S2 irregular Diminished breath sounds bases Bilateral crackles Abdomen pendulous lower respiratory bilateral edema Stasis changes Skin no suspicious lesion Psych anxious, confused Neuro moving all 4 extremities Medical - H&P: Reslt - Labs CBC & Chem 7: 01/02/18 04:35 01/02/18 04:35 Labs: Short CBC 01/01/18 Range/Units 22:01 WBC 15.4 H (4.5-11.0) K/mcL Hgb 13.3 L (13.5-16.5) g/dL Hct 41.7 (41.0-55.0) % Plt Count 113 L (140-440) K/mcL BMP 01/01/18 22:01 Sodium 129 L Potassium 4.3 Chloride 86 L Carbon Dioxide 26 BUN 42 H Creatinine 6.0 H* Glucose 178 H Calcium 9.0 Cardiac Enzymes 01/01/18 Range/Units 22:01 Troponin T 0.14 H* (0-0.03) ng/ml Liver Function 01/01/18 Range/Units 22:01 Total Bilirubin 0.4 (0.0-1.0) mg/dL AST 15 (0-37) U/l ALT 18 (0-40) U/l Alkaline Phosphatase 144 H (39-117) U/L Albumin 3.8 (3.2-5.2) gm/dL Medical - H&P: A/P (1) Acute respiratory failure with hypoxia Current visit: Yes Status: Acute * Acute hypoxic respiratory failure-supplemental oxygen, noninvasive ventilation. Check ABGs * Septic shock secondary pneumonia-continue broad antibiotic coverage. Start pressors to keep map at goal. Cultures. Management per protocol * Bilateral chest infiltrates with pulmonary edema/superimposed pneumonia-on broad antibiotic coverage. Pending cultures * Acute volume overload with pulmonary edema -hemodialysis per nephrology * A. fib with RVR-start amiodarone if persistent ventricular rate above 130 * ESRD on HD-managed per nephrology. * DM type II start basal prandial insulin * Neuropathy-hold gabapentin * Hypothyroidism-hold levothyroxin * Anticoagulation for CVA prophylaxis on Coumadin * Full code Plan * ICU admit * Septic shock management protocol * Central line and A-line * ABG * High flow oxygen * Nephrology consult for dialysis * Amiodarone if inadequate rate control * Patient critically ill, high-risk mortality. Collin 2 score over 17. made aware of poor prognosis Critical care time spent over 95 minutes reviewing labs, imaging, septic shock management , discussions with family, central line placement in addition to 70 minutes spent on history physical
[2018-01-02] MEDS ORDERED: LORazepam 2 MG/ML VIAL ONE (04:43)
--- NOTE | 2018-01-02 04:50 | Procedure Note ---
Procedures - Arterial Line Time out performed: No Size (Gauge): 20 Technique used: guide wire technique Additional comments: 4 attempts at arterial line on pts right side. able to get flash with each attempt with US guidance but either unable to deploy guide wire or unable to thread catheter over wire. pt becoming very agitated and starting to fight necessary bi pap. no other attempts made.
--- NOTE | 2018-01-02 05:43 | XRay Report ---
INDICATION: Fall. Weakness. Central venous catheter placement TECHNIQUE: AP chest x-ray,portable semiupright COMPARISON: 01/01/2018, 12/26/2017, 12/26/2017. FINDINGS:Left central venous catheter with its tip at the junction of the brachiocephalic vein and superior vena cava. No pneumothorax. Severe cardiomegaly. Pulmonary vascularity is prominent and there are findings consistent with interstitial pulmonary edema. Appearance consistent with congestive heart failure. Bibasilar pneumonia is not excluded in the appropriate clinical circumstances. IMPRESSION: 1. Left central venous catheter with its tip in the junction of brachiocephalic vein and superior vena cava. No pneumothorax 2. Severe cardiomegaly. Findings consistent with congestive heart failure Interpreted and Authenticated by: Bart Bazzi 01/02/18
[2018-01-02 05:51] LABS: Mean Cell Volume 102.7 fL (80.0-100.0); Mean Corpuscular HGB Conc 31.2 g/dL (31.0-36.0); Platelet Count 141 K/mcL (140-440); RBC 4.41 M/mcL (4.50-5.90); Red Cell Distribution Width 18.8 % (11.5-14.5)
[2018-01-02] MEDS ORDERED: PIPERACILLIN SODIUM/TAZOBACTAM 2.25 GM in DEXTROSE 5% IN WATER 50 ML IV SCH (06:00)
[2018-01-02 06:01] LABS: ALT/SGPT 21 U/l (0-40); Albumin 3.8 gm/dL (3.2-5.2); Albumin/Globulin Ratio 1.2 (1.0-2.3); Alkaline Phosphatase 159 U/L (39-117); Bilirubin,Direct 0.2 mg/dL (0.0-0.3); Blood Urea Nitrogen 44 mg/dl (8-23); Gamma Glutamyl Transpeptidase 112 U/L (8-61); Uric Acid 3.4 mg/dL (2.5-8.0)
--- NOTE | 2018-01-02 06:27 | XRay Report ---
INDICATION: Weakness. Fall. Chest pain. TECHNIQUE: AP chest x-ray,portable semiupright COMPARISON: Chest x-rays dated 12/26/2017, 09/26/2017 FINDINGS:Severe cardiomegaly. Diffuse pulmonary parenchymal infiltrates consistent with pulmonary edema. Findings are worse than on 12/26/2017. More focal infiltrates at both lung bases are probably related to pulmonary edema. Pneumonia cannot be excluded in the appropriate clinical circumstances. IMPRESSION: 1. Severe cardiomegaly and bilateral diffuse infiltrates consistent with congestive heart failure 2. Findings are worse than on 12/26/2017 Interpreted and Authenticated by: Bart Bazzi 01/02/18
[2018-01-02 06:28] LABS: Anisocytosis 1+ (NONE SEEN); Band Neutrophils % 3 % (0-10); Lymphocytes % 7 % (15-49); Macrocytosis 1+ (NONE SEEN); Metamyelocytes % 1 % (0-0); Monocytes % (Manual) 7 % (1-12); Platelet Estimate NORMAL (NORMAL); RBC Morphology ABNORM (NORMAL); Segmented Neutrophils % 82 % (38-78)
[2018-01-02] MEDS ORDERED: FLUMAZENIL 0.1 MG/ML ML IV ONE (07:04)
--- NOTE | 2018-01-02 08:03 | Nephrology Consult Note ---
History of Present Illness - Reason for Consult Patient information: Note initiated : 01/02/18 at 8:01 am David Pineda is a [id number] male presented to ED and admitted to ICU for septic shock on on 01/02/18 Chief complaint: Weakness. end stage renal disease - Chief Complaint Weakness - History of Present Illness David Pineda is a [id number] male with end stage renal disease on chronic hemodialysis (through left arm AV graft, at [facility], on TTS, followed by Dr Guerrero), chronic anemia due to chronic kidney disease, secondary hyperparathyroidism, coronary artery disease, chronic atrial fibrillation on Coumadin anticoagulation (Echo on 10/02/17: LVEF 65-70%), peripheral vascular disease, hypertension, hyperlipidemia, hypothyroidism, diabetes mellitus type 2, morbid obesity (BMI 40), obstructive sleep apnea on CPAP presented to ED. The patient recently treated for pneumonia. He had increased swelling of legs recently due to not tolerating UF at dialysis. He was feeling dizzy and shaky yesterday. His reported that he was unable to transfer from bathroom back to his wheelchair.and collapsed at home. He became progressively confused in ED. He was admitted to ICU for septic shock on on 01/02/18. Review of Systems ROS unobtainable: due to mental status, other (BIPAP) Past History Past medical history: Medical History (Last Reviewed 07/11/17 @ 15:13 by July Crawford MD) Encounter for Health Maintenance Examination in Adult (Chronic) Pain (Chronic) Constipation (Chronic) Hyperkalemia (Acute) Congestive heart failure (Acute) Tachy-delaney syndrome (Acute) Complicated UTI (urinary tract infection) (Acute) ESRD (end stage renal disease) on dialysis (Acute) Edema (Chronic) Anemia in chronic renal disease (Chronic) Gout (Chronic) Proteinuria (Chronic) Hypoxia, sleep related (Chronic) Obstructive sleep apnea (Chronic) Vitamin D deficiency (Chronic) Claudication (Chronic) Obesity (Chronic) Diabetes mellitus, type II (Chronic) Hyperlipidemia (Chronic) Hypertension (Chronic) Atrial fibrillation (Chronic) Chronic kidney failure (Chronic) Acute coronary syndrome (Resolved) Acute on chronic renal failure (Resolved) Hypertensive renal disease (Resolved) Open wound (Resolved) Renal failure (Resolved) CKD (chronic kidney disease), stage III (Inactive) Past surgical history: Past Surgical History (Last Reviewed 07/11/17 @ 15:13 by July Crawford MD) History of cataract surgery (Acute) History of hip replacement (Acute) Status post insertion of hemodialysis catheter (Acute) Past family history: Family History (Last Reviewed 07/11/17 @ 15:13 by July Crawford MD) Father Heart attack Brother Brain cancer Past social history: Lives with his . Medications and Allergies Home Medications Medication Instructions Recorded Confirmed Type coenzyme Q10 100 mg capsule 100 mg PO QDAY 05/25/16 09/25/17 History Accu-Chek 1 each FS ACHS strip 08/17/16 09/25/17 Rx Acetaminophen [Tylenol] 650 mg PO Q4-6HP PRN #0 tab 08/17/16 09/25/17 Rx Lactobacillus [Culturelle] 1 cap PO HS cap 08/17/16 09/25/17 Rx Sennosides/Docusate Sodium [Senna 1 tab PO HS tab 08/17/16 09/25/17 Rx Plus Tablet] nystatin 100,000 unit/gram topical 1 applic TOPICAL BID #30 each 09/07/16 Rx powder folic acid 3 mg-vit B complex with 1 tab-cap PO QDAY #30 tab 10/04/16 09/25/17 Rx C-selenium 70 mcg-zinc 15 mg tablet diabetic supplies, miscellan. See Dose Instructions .ROUTE 12/22/16 09/25/17 Rx .MEDSUPPLY #1 each Waffle Cushion #1 each 04/05/17 09/25/17 Rx bumetanide 2 mg tablet 3 mg PO .COMPLEX #135 tab 05/18/17 09/25/17 Rx atorvastatin 40 mg tablet 40 mg PO QDAY #30 tab 06/01/17 09/25/17 Rx ranitidine 150 mg tablet 150 mg PO QHS #30 tab 06/01/17 09/25/17 Rx silver ER topical gel,extended 1 applic TOPICAL Q12H #89 ml 06/14/17 09/25/17 Rx release metolazone 2.5 mg tablet 2.5 mg PO QOD #15 tab 07/10/17 09/25/17 Rx turmeric root extract 500 mg 500 mg PO QDAY 07/11/17 09/25/17 History capsule vitamin B complex 1 tab PO DAILY 07/11/17 09/25/17 History Gabapentin [Neurontin] 100 mg PO DAILY 07/17/17 09/25/17 History fluticasone 50 mcg/actuation nasal 2 spray INTRANASAL QDAY #9.9 g 09/07/1709/25 Rx spray,suspension insulin glargine (U-100) 100 28 unit SUB-Q QHS #15 ml 09/11/17 09/25/17 Rx unit/mL (3 mL) subcutaneous pen midodrine 2.5 mg tablet 2.5 mg PO TID PRN #90 tab 09/15/17 09/25/17 Rx insulin aspart U-100 100 unit/mL 5 unit SUB-Q QDAY #2 ml 09/25/17 09/25/17 Rx subcutaneous pen blood sugar diagnostic strips See Dose Instructions .ROUTE 09/26/17 Rx .MEDSUPPLY #100 each warfarin 5 mg tablet 5 mg PO .COMPLEX #90 tab 10/12/17 12/28/17 Rx warfarin 6 mg tablet 6 mg PO .COMPLEX #30 tab 10/12/17 12/28/17 Rx levothyroxine 150 mcg tablet 150 mcg PO QDAY #30 tab 10/26/17 Rx allopurinol 100 mg tablet 100 mg PO BID #180 tab 11/08/17 Rx calcium carbonate 200 mg calcium 200 mg PO TID tab 11/22/17 History (500 mg) chewable tablet albuterol sulfate HFA 90 2 puff INHALATION Q4H PRN #1 g 11/28/17 Rx mcg/actuation aerosol inhaler lactulose 10 gram/15 mL oral 20 g PO BID PRN #236 ml 11/30/17 Rx solution Azithromycin [Zithromax] 250 mg PO DAILY #6 tab 12/16/17 Rx levofloxacin 500 mg tablet 500 mg PO .QOD #5 tab 12/18/17 Rx Calcium Carbonate [Tums] 500 mg CHEWED AC 01/02/18 01/02/18 History Lactobacillus Acidophilus/Fos 1 tab PO DAILY 01/02/18 01/02/18 History [Acidophilus Probiotic Tablet] Allergies Allergy/AdvReac Type Severity Reaction Status Date / Time adhesive Allergy Unknown Unknown Verified 01/01/18 21:05 hydrocodone AdvReac Mild Dizziness Verified 01/01/18 21:05 morphine [MORPHINE] AdvReac Mild Nausea/Vomi Verified 01/01/18 21:05 ting Oxycodone AdvReac Mild Vomiting Verified 01/01/18 21:05 Exam - Vital Signs Vital signs: Temp Pulse Resp BP Pulse Ox 98.0 F 120 H 34 H 102/51 96 01/02/18 00:52 01/02/18 07:52 01/02/18 06:40 01/02/18 07:52 01/02/18 06:40 - General Appearance General appearance: obese EENT: mucous membranes dry Neck: JVD, supple Respiratory: course breath sounds Cardiology: edema, irregular rhythm Gastrointestinal: no tenderness Integumentary: warm and dry, ecchymotic Neurologic: obtunded Musculoskeletal: erythema, cyanosis Additional exam: sedated on BIPAP. Results - Lab Results 01/02/18 04:35 01/02/18 04:35 Most recent lab results Calcium 8.9 mg/dl (8.6-10.4) 01/02/18 04:35 Phosphorus 4.7 mg/dL (2.7-4.5) H 01/02/18 04:35 Magnesium 2.8 mg/dL (1.6-2.5) H 01/02/18 04:35 Assessment and Plan (1) ESRD (end stage renal disease) on dialysis End stage renal disease on chronic hemodialysis (through left arm AV graft, at [facility], on TTS, followed by Dr Guerrero). Last hemodialysis on 12/30/17. Anuric. Progress: In ICU on BIPAP and 2 pressors for septic shock. Hemodialysis today without UF for 3 hours. The patient seen and evaluated on hemodialysis at 08:00. Plan: Monitor daily for dialysis need. Recommend transfer to higher level of care for CRRT/CVVHD. Prognosis: Guarded. Status: Chronic Priority: Medium (2) Anemia due to end stage renal disease Status: Chronic Priority: Medium
[2018-01-02] MEDS ORDERED: DOCUSATE SODIUM 100 MG CAPSULE PO SCH (09:00)
[2018-01-02] MEDS ORDERED: 0.9 % SODIUM CHLORIDE 10 ML SYRINGE IV SCH (09:00)
[2018-01-02] MEDS ORDERED: AMIODARONE 150 MG in DEXTROSE 5% IN WATER 50 ML IV ONE (09:08)
[2018-01-02] MEDS ORDERED: AMIODARONE 360 MG in PREMIX 1 BAG IV SCH (09:15)
[2018-01-02] MEDS ORDERED: VANCOMYCIN 1,000 MG in 0.9 % SODIUM CHLORIDE 250 ML IV SCH (12:00)
--- NOTE | 2018-01-02 12:07 | Transfer Summary ---
Transfer Discharge Sum: Prov Patient information: Note initiated : 01/02/18 at 12:00 pm Service Date, if different from initiated Date: [] Patient: David Pineda 77 y/o M admitted on 01/02/18 for weakness. Chief Complaint: [] Date of admission: 01/02/18 00:52 Discharge Date: 01/02/18 Primary care physician: Ani Hubbard DO Consults: 01/02/18 00:08 Consult to Physician [CONS] Stat Comment: Consulting Provider: Angela Davalos Reason For Exam: Physician to Consult 01/02/18 00:09 Consult to Physician [CONS] Stat Comment: Consulting Provider: Jose German Reason For Exam: Physician to Consult Transfer Discharge Sum: Diag - Discharge Diagnosis (1) Acute respiratory failure with hypoxia Status: Acute Transfer Discharge Sum: Med - Medications Active and Home Medications: Home Medications coenzyme Q10 100 mg capsule 100 mg PO QDAY 05/25/16 [History Confirmed 09/25/17] Accu-Chek 1 each FS ACHS strip 08/17/16 [Rx Confirmed 09/25/17] Acetaminophen [Tylenol] 650 mg PO Q4-6HP PRN #0 tab 08/17/16 [Rx Confirmed 09/25] Lactobacillus [Culturelle] 1 cap PO HS cap 08/17/16 [Rx Confirmed 09/25/17] Sennosides/Docusate Sodium [Senna Plus Tablet] 1 tab PO HS tab 08/17/16 [Rx Confirmed 09/25/17] nystatin 100,000 unit/gram topical powder 1 applic TOPICAL BID #30 each [Rx Confirmed 09/25/17] folic acid 3 mg-vit B complex with C-selenium 70 mcg-zinc 15 mg tablet 1 tab- cap PO QDAY #30 tab 10/04/16 [Rx Confirmed 09/25/17] diabetic supplies, miscellan. See Dose Instructions .ROUTE .MEDSUPPLY #1 each [Rx Confirmed 09/25/17] Waffle Cushion #1 each 04/05/17 [Rx Confirmed 09/25/17] bumetanide 2 mg tablet 3 mg PO .COMPLEX #135 tab 05/18/17 [Rx Confirmed 09/25/17 ] atorvastatin 40 mg tablet 40 mg PO QDAY #30 tab 06/01/17 [Rx Confirmed 09/25/17] ranitidine 150 mg tablet 150 mg PO QHS #30 tab 06/01/17 [Rx Confirmed 09/25/17] silver ER topical gel,extended release 1 applic TOPICAL Q12H #89 ml 06/14/17 [ Rx Confirmed 09/25/17] metolazone 2.5 mg tablet 2.5 mg PO QOD #15 tab 07/10/17 [Rx Confirmed 09/25/17] turmeric root extract 500 mg capsule 500 mg PO QDAY 07/11/17 [History Confirmed 09/25/17] vitamin B complex 1 tab PO DAILY 07/11/17 [History Confirmed 09/25/17] Gabapentin [Neurontin] 100 mg PO DAILY 07/17/17 [History Confirmed 09/25/17] fluticasone 50 mcg/actuation nasal spray,suspension 2 spray INTRANASAL QDAY # 9.9 g 09/07/17 [Rx Confirmed 09/25/17] insulin glargine (U-100) 100 unit/mL (3 mL) subcutaneous pen 28 unit SUB-Q QHS # 15 ml 09/11/17 [Rx Confirmed 09/25/17] midodrine 2.5 mg tablet 2.5 mg PO TID PRN #90 tab 09/15/17 [Rx Confirmed ] insulin aspart U-100 100 unit/mL subcutaneous pen 5 unit SUB-Q QDAY #2 ml 09/25 [Rx Confirmed 09/25/17] blood sugar diagnostic strips See Dose Instructions .ROUTE .MEDSUPPLY #100 each 09/26/17 [Rx] warfarin 5 mg tablet 5 mg PO .COMPLEX #90 tab 10/12/17 [Rx Confirmed 12/28/17] warfarin 6 mg tablet 6 mg PO .COMPLEX #30 tab 10/12/17 [Rx Confirmed 12/28/17] levothyroxine 150 mcg tablet 150 mcg PO QDAY #30 tab 10/26/17 [Rx] allopurinol 100 mg tablet 100 mg PO BID #180 tab 11/08/17 [Rx] calcium carbonate 200 mg calcium (500 mg) chewable tablet 200 mg PO TID tab 07/01 [History] albuterol sulfate HFA 90 mcg/actuation aerosol inhaler 2 puff INHALATION Q4H PRN #1 g 11/28/17 [Rx] lactulose 10 gram/15 mL oral solution 20 g PO BID PRN #236 ml 11/30/17 [Rx] Azithromycin [Zithromax] 250 mg PO DAILY #6 tab 12/16/17 [Rx] levofloxacin 500 mg tablet 500 mg PO .QOD #5 tab 12/18/17 [Rx] Calcium Carbonate [Tums] 500 mg CHEWED AC 01/02/18 [History Confirmed 01/02/18] Lactobacillus Acidophilus/Fos [Acidophilus Probiotic Tablet] 1 tab PO DAILY [History Confirmed 01/02/18] Active Medications Acetaminophen (Tylenol) 650 mg PO Q4-6HP PRN PRN Reason: PAIN/FEVER > 101 Docusate Sodium (Colace) 100 mg PO BID [facility] Last Admin: 01/02/18 09:40 Dose: Not Given Norepinephrine Bitartrate 16 (mg/ Sodium Chloride) 250 mls @ 9.37 mls/hr IV Q24H JUAN; 10 MCG/MIN PRN Reason: Protocol Last Titration: 01/02/18 10:46 Dose: 15 mcg/min, 14.06 mls/hr Sodium Chloride (Sodium Chloride 0.9%) 250 mls @ 20 mls/hr IV .[id number] JUAN Last Admin: 01/02/18 01:40 Dose: 20 mls/hr Sodium Chloride (Sodium Chloride 0.9%) 250 mls @ 20 mls/hr IV .[id number] [facility] Last Admin: 01/02/18 05:18 Dose: Not Given Vasopressin 20 unit/ Dextrose 100 mls @ 12 mls/hr IV Q8H JUAN; 0.04 UNIT/MIN PRN Reason: Protocol Last Admin: 01/02/18 11:05 Dose: 0.04 unit/min, 12 mls/hr Heparin Sodium/Sodium Chloride (Heparin/Ns) 500 mls @ 0 mls/hr IV .Q0M JUAN; KVO PRN Reason: Protocol Piperacillin Sod/Tazobactam (Sod 2.25 gm/ Dextrose) 50 mls @ 100 mls/hr IV Q8H JUAN Vancomycin HCl 1,000 mg/ (Sodium Chloride) 250 mls @ 250 mls/hr IV 1200 JUAN Stop: 01/02/18 12:59 Last Admin: 01/02/18 11:40 Dose: 250 mls/hr AMIODARONE 360 mg/ Premix 200 mls @ 33.33 mls/hr IV .Q6H1M JUAN; 1 MG/MIN PRN Reason: Protocol Stop: 01/03/18 00:15 Last Admin: 01/02/18 10:02 Dose: 1 mg/min, 33.33 mls/hr Ondansetron HCl (Zofran) 4 mg IV Q4-6HP PRN PRN Reason: Nausea And Vomiting Senna/Docusate Sodium (Senna Plus Tablet) 1 tab PO HS [facility] Sodium Chloride (Saline Flush) 10 ml IV Q12 [facility] Last Admin: 01/02/18 09:41 Dose: 10 ml Sodium Chloride (Saline Flush) 10 ml IV UD PRN PRN Reason: flush Vancomycin HCl (Vancomycin Per Pharmacy) 1 order IV UD JUAN Warfarin Sodium (Coumadin Per Pharmacy) 1 order PO DAILY@1400 [facility] Transfer Discharge Sum: Hosp Hospital course: Transfer diagnosis * Acute hypoxic hypercapnic respiratory on noninvasive ventilation. Platelet improved from 7.07-7.23 with PCO2 down to 73(baseline pCO2 around 55-60 based on Hinojosa equation 2016). * Acute pulmonary edema from volume overload-nephrology recommends require CRRT as unable to remove fluid during dialysis. Transfer to tertiary Center. Case discussed with Dr. Sage [place] head orthopedic team physician and Dr. Simpson's restaurant assistant manager * Septic shock secondary to possible pneumonia-white count up to 21.6. On broad antibiotic coverage and norepinephrine/vasopressin. Map at goal lactic acid 0.6. Cultures negative so far * A. fib with rate improved on amiodarone. * ESRD on HD-managed per nephrology. * DM type II managed on basal prandial insulin * Anticoagulation for CVA prophylaxis on Coumadin. INR 2.9 * Pre-existing medical issues-home meds held Brief hospital course Mr. Pineda is a 77 year old M with ESRD On HD presents with worsning SOB over 5 days Patient was recently treated for her pneumonia on levaquin for 7 days. Over the last 5 days patient's symptoms have progressively deteriorated however he did not present to the ER until his symptoms have become profoundly worse with dizziness, dyspnea and subsequent fall today. He complains of inability to perform activities of daily living and has been unable to sleep due to profound SOB. He presents with his Abby. Initial workup was significant for bilateral infiltrates/pulmonary edema along with white count over 15,000. Systolics have been hovering around 80s. He denies recent sick contacts. Denies yellow productive sputum. Unclear vaccination status. Subsequently hospitalist service and nephrology was consulted by ER. At the time of evaluation patient is fairly dyspneac, confused and unable to talk in full sentences. He endorses to low-grade fever but denies shaking chills sweats. Endorses to significant lower extremity swelling worsening over the last few days. He has been unable to sleep for the last couple of nights. He is been feeling very dizzy and shaky. He Denies diarrhea dysuria or joint pain and rash . His last hemodialysis was 2 days ago. 9:40 AM Patient continues to deteriorate. On dual vasopressors for septic shock. ABGs 7. improving to 7.23/ on noninvasive ventilation. Case discussed with nephrology. Hypertension not amenable to fluid removal. CRRT not available at our center. Nephrology recommends transfer to tertiary Center. We'll initiate transfer if agreeable with patient and family 12:05 PM Case discussed with [place] nephrology Dr. Sage and [place] restaurant assistant manager Dr. Simpson. Highly appreciate their help in accepting patient for further management of this critically ill patient extremely complex HD dependent patient with septic shock. Patient will be transferred by air ambulance. On amiodarone drip for rate control Prior to discharge blood pressure 105/71 heart rate 110, on BiPAP 35% FiO2, EPAP 8 IPAP 18. Patient is critically ill but hemodynamically stable on pressors and noninvasive ventilation. - Time Spent with Patient Total time spent providing and/or coordinating transfer services: Greater than 30 minutes Transfer Discharge Sum: Exam - Constitutional Vitals: Vital Signs Temp Pulse Pulse Resp BP BP BP 01/02/18 10:48 112 H 17 95/79 01/02/18 10:30 96.9 F L 109 H 107/55 01/02/18 10:17 115 H 21 107/50 01/02/18 10:15 117 H 143/123 01/02/18 10:05 107 H 93/57 01/02/18 10:00 123 H 20 93/57 01/02/18 09:56 125 H 108/84 01/02/18 09:42 121 H 126/67 05/22/18 09:38 133 H 05/22/18 09:32 127 H 121/63 0518 09:25 123 H 86/56 0518 09:20 125 H 18 86/56 18 09:17 130 H 95/54 18 09:04 132 H 98/52 18 09:00 125 H 22 98/52 18 08:56 123 H 96/57 18 08:44 124 H 94/56 18 08:34 128 H 90/56 18 08:27 124 H 19 106/52 18 08:21 123 H 86/51 18 08:20 97.8 F 125 H 22 86/51 18 08:15 112 H 107/44 18 08:04 120 H 106/52 01/02/18 07:52 120 H 102/51 18 07:30 117 H 23 H 108/44 18 07:25 120 H 108/44 18 07:00 115 H 24 H 125/52 18 06:45 123 H 19 18 06:40 127 H 34 H 18 06:00 01/02/18 05:54 111 H 18 100/57 18 05:25 113 H 15 115/56 18 05:11 119 H 20 58/45 0518 05:00 121 H 18 106/51 18 04:55 118 H 16 104/67 18 04:50 117 H 20 90/34 0518 04:46 120 H 16 99/74 0518 04:38 118 H 19 67/50 05/18 04:22 120 H 18 100/75 0518 04:15 124 H 21 18 04:10 121 H 25 H 142/62 18 03:35 118 H 26 H 54/30 0518 03:20 121 H 21 85/64 0522/18 03:10 124 H 23 H 68/14 0518 03:00 122 H 18 100/52 0518 02:40 121 H 17 44/32 0518 02:35 123 H 24 H 78/63 0518 02:30 116 H 19 87/33 0518 02:26 17 103/83 18 02:20 20 78/63 0518 02:10 20 76/59 0518 02:00 18 116/93 18 01:50 22 71/52 0518 01:40 21 61/52 05 01:30 22 73/62 0518 01:05 24 H 92/58 0518 00:52 98.0 F 01/02/18 00:00 119 H 112/61 01/01/18 23:33 108 H 98/71 01/01/18 23:00 121 H 95/54 0518 22:30 102 H 109/61 0518 22:23 110 H 20 73/60 0518 21:45 121 H 92/56 01/01/18 21:05 117 H 107/56 05 20:56 98.6 F 117 H 20 107/56 Pulse Ox 01/02/18 10:48 96 01/02/18 10:30 01/02/18 10:17 100 01/02/18 10:15 01/02/18 10:05 01/02/18 10:00 100 01/02/18 09:56 01/02/18 09:42 01/02/18 09:38 01/02/18 09:32 01/02/18 09:25 01/02/18 09:20 98 01/02/18 09:17 01/02/18 09:04 01/02/18 09:00 98 01/02/18 08:56 01/02/18 08:44 01/02/18 08:34 01/02/18 08:27 97 01/02/18 08:21 01/02/18 08:20 98 01/02/18 08:15 01/02/18 08:04 01/02/18 07:52 01/02/18 07:30 98 01/02/18 07:25 01/02/18 07:00 96 01/02/18 06:45 97 01/02/18 06:40 96 01/02/18 06:00 96 01/02/18 05:54 01/02/18 05:25 01/02/18 05:11 01/02/18 05:00 01/02/18 04:55 01/02/18 04:50 01/02/18 04:46 01/02/18 04:38 01/02/18 04:22 01/02/18 04:15 01/02/18 04:10 01/02/18 03:35 01/02/18 03:20 01/02/18 03:10 01/02/18 03:00 01/02/18 02:40 01/02/18 02:35 01/02/18 02:30 01/02/18 02:26 81 L 01/02/18 02:20 20 L 01/02/18 02:10 91 01/02/18 02:00 90 01/02/18 01:50 90 01/02/18 01:40 91 01/02/18 01:30 94 01/02/18 01:05 85 L 01/02/18 00:52 94 01/02/18 00:00 94 01/01/18 23:33 86 L 01/01/18 23:00 87 L 01/01/18 22:30 83 L 01/01/18 22:23 90 01/01/18 21:45 95 01/01/18 21:05 95 01/01/18 20:56 Intake and Output 01/01/18 01/02/18 01/02/18 21:59 05:59 13:59 Intake Total 310 / 310 285 / 285 Output Total 0 / 0 Balance 310 / 310 285 / 285 Intake: IV 310 / 310 285 / 285 Cordarone 150 mg In Dextrose 5% 53 / 53 in Water 50 ml @ 300 mls/hr IV ONCE ONE Rx#:[id number] Levophed 16 mg In Sodium 10 / 10 146 / 146 Chloride 0.9% 234 ml @ 10 MCG/ MIN 9.37 mls/hr IV Q24H [facility] Rx# :[id number] Zosyn 3.375 gm In Dextrose 5% 50 / 50 in Water 50 ml @ 100 mls/hr IV ONCE ONE Rx#:[id number] Vancomycin 1,000 mg In Sodium 250 / 250 Chloride 0.9% 250 ml @ 250 mls/ hr IV ONCE ONE Rx#:[id number] Vasostrict 20 Unit In Dextrose 86 / 86 5% in Water 99 ml @ 0.04 UNIT/ MIN 12 mls/hr IV Q8H [facility] Rx#: [id number] Output: Hemodialysis UF 0 / 0 Other: Weight 260 lb 259 lb 14.4 oz Transfer Discharge Sum: Data Procedures and tests throughout hospitalization: Transfer Discharge Sum: A/P - Problem Maintenance (1) Acute respiratory failure with hypoxia Status: Acute - Plan Functional capacity at transfer: bed bound Overall status at transfer: patient is not back to baseline Disposition: Xfer [facility] Quality Measure Queries - VTE Deep Vein Thrombosis/Pulmonary Embolism Present on Admission: No
[2018-01-02] MEDS ORDERED: SENNOSIDES/DOCUSATE SODIUM 1 TAB TABLET PO SCH (21:00)
== END 2018-01-02 13:05 | disposition short-term general hospital (02) | DRG 871 ==
LOC: ED 20:55 → ICU 01-02 00:52
PROVIDERS: ADMIT Internal Medicine; ATTEND Internal Medicine